=== PATIENT | female | born 1980 | race Caucasian/White ===

== ENCOUNTER → 2016-07-20 | Outpatient (CLI) | payer MEDICARE, OTHER ==
--- NOTE | 2016-07-20 13:06 | XR ---
EXAMINATION TYPE: XR chest 2V DATE OF EXAM: 07/20/2016 1:02 PM COMPARISON: 05/20/2016 INDICATION: Pneumonia TECHNIQUE: Frontal and lateral views of the chest are obtained. FINDINGS: The heart size is normal. The pulmonary vasculature is normal. The lungs are clear. IMPRESSION: 1. No acute pulmonary process.
== END | disposition home or self-care (01) ==
LOC: RADXRMAIN 12:50
PROVIDERS: ATTEND Internal Medicine Sleep Medicine
DX: J18.9 Pneumonia, unspecified organism (principal)
CPT/HCPCS: 71020

== ENCOUNTER 2016-07-22 13:48 | Emergency (ER) | payer MEDICARE, OTHER ==
[2016-07-22 14:16] VITALS: BP 138/89; PULSE 93; RESP 16; TEMP 98.7
[2016-07-22] MEDS ORDERED: ORPHENADRINE 30 MG/ML 2 ML VIAL IM STA (14:44)
[2016-07-22] MEDS ORDERED: KETOROLAC 60 MG/2 ML VIAL IM STA (14:44)
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
--- NOTE | 2016-07-22 15:27 | XR ---
EXAMINATION TYPE: XR chest 2V DATE OF EXAM: 07/22/2016 3:04 PM COMPARISON: NONE INDICATION: Pain TECHNIQUE: Frontal and lateral views of the chest are obtained. FINDINGS: The heart size is normal. The pulmonary vasculature is normal. The lungs are clear. Surgical clips from a thyroidectomy are evident. IMPRESSION: 1. No acute pulmonary process.
--- NOTE | 2016-07-22 15:28 | XR ---
EXAMINATION TYPE: XR thoracic spine 2V DATE OF EXAM: 07/22/2016 3:04 PM COMPARISON: NONE HISTORY: Upper back pain TECHNIQUE: 3 views thoracic spine FINDINGS: Vertebral body heights are preserved. Disc heights are preserved. There are 12 thoracic typ e vertebral bodies. The pedicles are intact. IMPRESSION: Normal thoracic spine
== END 2016-07-22 16:17 | disposition home or self-care (01) ==
LOC: EC 13:48
DX: M54.6 Pain in thoracic spine (principal); R05 Cough; J44.9 Chronic obstructive pulmonary disease, unspecified; E07.9 Disorder of thyroid, unspecified; F17.200 Nicotine dependence, unspecified, uncomplicated; Z87.01 Personal history of pneumonia (recurrent); Z79.899 Other long term (current) drug therapy
CPT/HCPCS: 99283; 96372 ×2; 72070; 71020; J2360; J1885

== ENCOUNTER 2016-10-23 09:18 | Emergency (ER) | payer MEDICARE, OTHER ==
[2016-10-23 09:27] VITALS: BP 140/82; PULSE 109; RESP 20; TEMP 97.6
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
== END 2016-10-23 10:19 | disposition home or self-care (01) ==
LOC: EC 09:18
DX: M77.11 Lateral epicondylitis, right elbow (principal); E07.9 Disorder of thyroid, unspecified; F41.9 Anxiety disorder, unspecified; F17.200 Nicotine dependence, unspecified, uncomplicated; Z79.1 Long term (current) use of non-steroidal anti-inflammatories (NSAID); Z79.899 Other long term (current) drug therapy
CPT/HCPCS: 99283

== ENCOUNTER 2016-12-27 21:23 | Emergency (ER) | payer MEDICARE, OTHER ==
[2016-12-27] MEDS ORDERED: HYDROmorphone 1 MG/ML 1 ML SYRINGE IM STA (22:53)
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
[2016-12-28 00:04] VITALS: BP 138/87; PULSE 104; RESP 16; TEMP 98.3
== END 2016-12-28 00:15 | disposition home or self-care (01) ==
LOC: EC 21:23
DX: M96.830 Postprocedural hemorrhage of a musculoskeletal structure following a musculoskeletal system procedure (principal); E07.9 Disorder of thyroid, unspecified; F17.200 Nicotine dependence, unspecified, uncomplicated; Z79.1 Long term (current) use of non-steroidal anti-inflammatories (NSAID); Z79.899 Other long term (current) drug therapy; Y83.8 Other surgical procedures as the cause of abnormal reaction of the patient, or of later complication, without mention of misadventure at the time of the procedure
CPT/HCPCS: 99283; 96372; J1170

== ENCOUNTER 2017-02-24 11:40 | Emergency (ER) | payer MEDICARE, OTHER ==
[2017-02-24 11:48] VITALS: RESP 20
[2017-02-24] MEDS ORDERED: ALBUTEROL NEBULIZED 2.5 MG/3 ML INHALATION STA (12:03)
[2017-02-24] MEDS ORDERED: IPRATROPIUM-ALBUTEROL 3 ML NEB INHALATION STA (12:03)
[2017-02-24] MEDS ORDERED: DEXAMETHASONE 4 MG TAB PO STA (12:04)
--- NOTE | 2017-02-24 12:17 | XR ---
EXAMINATION TYPE: XR chest 2V DATE OF EXAM: 02/24/2017 COMPARISON: NONE HISTORY: Cough and congestion with history of asthma and COPD TECHNIQUE: Frontal and lateral views of the chest are obtained. FINDINGS: There is no focal air space opacity, pleural effusion, or pneumothorax seen. The cardiac silhouette size is within normal limits. The osseous structures are intact. Surgical clips from nancy or thyroidectomy are noted. Minimal degenerative changes of the thoracic spine are seen. IMPRESSION: No acute cardiopulmonary process.
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
[2017-02-24 13:39] VITALS: BP 143/97; PULSE 100; TEMP 98.2
== END 2017-02-24 13:39 | disposition home or self-care (01) ==
LOC: EC 11:40
DX: J44.1 Chronic obstructive pulmonary disease with (acute) exacerbation (principal); J40 Bronchitis, not specified as acute or chronic; E07.9 Disorder of thyroid, unspecified; F17.200 Nicotine dependence, unspecified, uncomplicated; Z86.73 Personal history of transient ischemic attack (TIA), and cerebral infarction without residual deficits; Z79.890 Hormone replacement therapy; Z79.899 Other long term (current) drug therapy
CPT/HCPCS: 94640; 71020; 99283; J8540

== ENCOUNTER → 2017-02-27 | Outpatient (CLI) | payer MEDICARE, OTHER ==
[2017-02-27 16:38] LABS: CH 34.2; CHCM 35.9; HCT 41.9 % (34.0-46.0); HDW 2.53; HGB 14.7 gm/dL (11.4-16.0); MCH 33.4 pg (25.0-35.0); MCV 95.6 fL (80.0-100.0); Mean Platelet Volume 7.8; RBC 4.39 m/uL (3.80-5.40); RDW 13.7 % (11.5-15.5); WBC 9.8 k/uL (3.8-10.6)
[2017-02-27 17:56] LABS: Erythrocyte Sedimentation Rate 5 mm/hr (0-20)
[2017-02-27 20:23] LABS: RBC, Body Fluid 9900 /uL
== END | disposition home or self-care (01) ==
LOC: LABWHC1 16:08
PROVIDERS: ATTEND Orthopaedic Surgery
DX: M23.631 Other spontaneous disruption of medial collateral ligament of right knee (principal); M23.612 Other spontaneous disruption of anterior cruciate ligament of left knee
CPT/HCPCS: 36415; 83520; 85027; 85652; 86140; 87070; 87075; 87205; 89050

== ENCOUNTER → 2017-03-28 | Outpatient (CLI) | payer MEDICARE, OTHER ==
--- NOTE | 2017-03-31 10:03 | MM ---
Reason for exam: clinical finding. Baseline mammogram. History: Family history of breast cancer in maternal grandmother at age 50. Took hormonal contraceptives for 10 years beginning at age 17. Physical Findings: Nurse did not find any significant physical abnormalities on exam. MG 3D Diag Mammo Wo Cad ASHLEE Bilateral CC and MLO view(s) were taken. XCCL view(s) were taken of the right breast. There are scattered fibroglandular densities. No suspicious abnormality. These results were verbally communicated with the patient and result sheet given to the patient on 03/28/17. ASSESSMENT: Negative, BI-RAD 1 RECOMMENDATION: Routine screening mammogram of both breasts at age 42.
--- NOTE | 2017-03-31 10:05 | USB ---
Reason for exam: clinical finding. History: Family history of breast cancer in maternal grandmother at age 50. Took hormonal contraceptives for 10 years beginning at age 17. US Breast BILAT Right breast ultrasound includes all four quadrants, the retroareolar region and axilla. Finding demonstrates no cystic or solid lesion seen. Left breast ultrasound includes all four quadrants, the retroareolar region and axilla. Finding demonstrates no cystic or solid lesion seen. No suspicious sonographic abnormality. No cystic or solid mass. These results were verbally communicated with the patient and result sheet given to the patient on 03/28/17. ASSESSMENT: Negative, BI-RAD 1 RECOMMENDATION: Routine screening mammogram of both breasts at age 42. (or sooner if clinically indicated) Manage patient on a clinical basis.
== END | disposition home or self-care (01) ==
LOC: RADMAMWWP 14:03
PROVIDERS: ATTEND Internal Medicine
DX: N63 Unspecified lump in breast (principal)
CPT/HCPCS: 76641; G0204; G0279

== ENCOUNTER 2017-06-19 09:26 | Emergency (ER) | payer MEDICARE, OTHER ==
[2017-06-19] MEDS ORDERED: SODIUM CHLORIDE 0.9% 1,000 ML IV STA (09:40)
[2017-06-19] MEDS ORDERED: PANTOPRAZOLE 40 MG/10 ML VIAL IVP STA (09:40)
[2017-06-19] MEDS ORDERED: ONDANSETRON 4 MG/2 ML VIAL IVP STA (09:40)
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
[2017-06-19 10:18] LABS: Basophils % (A) 0 %; CH 33.7; CHCM 35.9; Eosinophils # (A) 0.1 k/uL (0-0.7); Eosinophils % (A) 1 %; HCT 43.1 % (34.0-46.0); HDW 2.54; Luc # (Auto) 0.09; Luc % (Auto) 1; Lymphocytes # (A) 1.9 k/uL (1.0-4.8); Lymphocytes % (A) 22 %; MCH 32.8 pg (25.0-35.0); MCHC 34.8 g/dL (31.0-37.0); MCV 94.4 fL (80.0-100.0); Monocytes # (A) 0.4 k/uL (0-1.0); Monocytes % (A) 5 %; Neutrophils # (A) 5.8 k/uL (1.3-7.7); Neutrophils % (A) 70 %; RBC 4.57 m/uL (3.80-5.40); RDW 12.7 % (11.5-15.5); WBC 8.4 k/uL (3.8-10.6); WBC (Perox) 8.06
[2017-06-19 10:19] LABS: Appearance,Urine Clear (Clear); Bilirubin,Urine Negative (Negative); Glucose,Urine (UA) Negative (Negative); Ketones,Urine Negative (Negative); Leukocyte Esterase,Urine Negative (Negative); Nitrite,Urine Negative (Negative); Protein,Urine Negative (Negative); Specific Gravity,Urine 1.003 (1.001-1.035); UA Billing (MACRO vs. MICRO) CHEM; Urobilinogen,Urine <2.0 mg/dL (<2.0)
[2017-06-19 10:26] LABS: ALT 55 U/L (9-52); AST 34 U/L (14-36); Alkaline Phosphatase 62 U/L (38-126); Amylase 48 U/L (30-110); Anion Gap 9 mmol/L; Blood Urea Nitrogen 13 mg/dL (7-17); Calcium 10.3 mg/dL (8.4-10.2); Carbon Dioxide 29 mmol/L (22-30); Chloride 102 mmol/L (98-107); Glucose 91 mg/dL (74-99); Non-African American GFR(MDRD) >60 (>60 ml/min/1.73 sqM); Potassium 4.3 mmol/L (3.5-5.1); Sodium 140 mmol/L (137-145); Total Bilirubin 0.2 mg/dL (0.2-1.3); Total Protein 7.4 g/dL (6.3-8.2)
--- NOTE | 2017-06-19 10:38 | XR ---
EXAMINATION TYPE: XR chest 2V DATE OF EXAM: 06/19/2017 COMPARISON: 02/24/2017 HISTORY: Chest pain TECHNIQUE: Frontal and lateral views of the chest are obtained. FINDINGS: There is no focal air space opacity. No evidence for pneumothorax. No pleural effusion. The cardiac silhouette size is within normal limits. The osseous structures are grossly intact. IMPRESSION: 1. No acute cardiopulmonary process.
--- NOTE | 2017-06-19 10:39 | XR ---
EXAMINATION TYPE: XR KUB DATE OF EXAM: 06/19/2017 COMPARISON: NONE HISTORY: Pain TECHNIQUE: Single supine KUB image of the abdomen is obtained FINDINGS: Small bowel demonstrates no evidence for dilatation or air fluid levels. Gas and fecal material is seen in non-distended colon. No convincing evidence for pneumoperitoneum. No unusual calcifications. The lung bases are clear. The osseous structures are intact. IMPRESSION: 1. Overall nonobstructive bowel gas pattern.
[2017-06-19 11:09] VITALS: BP 142/81; PULSE 98; RESP 16; TEMP 98
== END 2017-06-19 11:05 | disposition home or self-care (01) ==
LOC: EC 09:26
DX: R11.2 Nausea with vomiting, unspecified (principal); R19.7 Diarrhea, unspecified; R10.9 Unspecified abdominal pain; R11.14 Bilious vomiting; R05 Cough; E07.9 Disorder of thyroid, unspecified; F41.9 Anxiety disorder, unspecified; F17.200 Nicotine dependence, unspecified, uncomplicated; Z79.1 Long term (current) use of non-steroidal anti-inflammatories (NSAID); Z88.5 Allergy status to narcotic agent; Z79.899 Other long term (current) drug therapy; Z90.49 Acquired absence of other specified parts of digestive tract
CPT/HCPCS: 36415; 80053; 82150; 83690; 85025; 81003; 81025; 71020; 74000; 99284; 96374; 96375; 96361; J2405; C9113

== ENCOUNTER → 2017-07-15 | Outpatient (CLI) | payer MEDICARE, OTHER ==
--- NOTE | 2017-07-15 07:43 | US ---
EXAMINATION TYPE: US abdomen complete DATE OF EXAM: 07/15/2017 COMPARISON: CT CLINICAL HISTORY: R10.84 Generalized Abdominal Pain. Pt states generalized ABD pain, GERD, recent alida ght gain EXAM MEASUREMENTS: Liver Length: 13.4 cm CBD: 1.0 cm proximal, 0.6 cm distal Spleen: 9.0 cm Right Kidney: 10.2 x 4.6 x 5.5 cm Left Kidney: 10.1 x 5.5 x 5.0 cm Pancreas: wnl Liver: Heterogeneous Gallbladder: Surgically absent Evidence for sonographic Mesa's sign: No CBD: wnl Spleen: wnl Right Kidney: wnl Left Kidney: wnl, difficult to visualize due to overlying bowel gas Upper IVC: wnl Abd Aorta: wnl No abnormality visualized to account for pt's symptoms The liver is heterogenous. The intrahepatic portion of the IVC and proximal abdominal aorta are withi n normal limits. Common bile duct is unremarkable. The visualized portions of the pancreas are homo genous. The spleen is unremarkable. Kidneys are symmetric and free of hydronephrosis. No renal les ions are seen. IMPRESSION: 1. Fatty liver versus diffuse hepatocellular disease.
== END | disposition home or self-care (01) ==
LOC: RADUSWWP 07:01
PROVIDERS: ATTEND Internal Medicine
DX: R10.84 Generalized abdominal pain (principal); Z88.6 Allergy status to analgesic agent; Z88.5 Allergy status to narcotic agent; Z88.7 Allergy status to serum and vaccine
CPT/HCPCS: 76700

== ENCOUNTER → 2017-12-27 | Outpatient (CLI) | payer MEDICARE, OTHER ==
--- NOTE | 2017-12-27 09:25 | MR ---
EXAMINATION TYPE: MR knee RT wo con DATE OF EXAM: 12/27/2017 COMPARISON: NONE HISTORY: Pain in both knees TECHNIQUE: Multiplanar, multisequence imaging of the right knee is performed without IV contrast. FINDINGS: MEDIAL MENISCUS: Anterior and posterior horns are intact without tear. LATERAL MENISCUS: There may be root tear of the posterior horn of the lateral meniscus CRUCIATE LIGAMENTS: Patient shows anterior cruciate ligament repair change, susceptibility artifact i s present, there is fluid present at the level of the distal metaphysis of the tibia at the site of p atient's operative change superficial to the bone, there is some widening of the channel distally whi ch is indeterminate but could be postoperative COLLATERAL LIGAMENTS: The medial collateral ligament and lateral collateral ligament complex are inta ct and unremarkable. EXTENSOR MECHANISM: Visualized quadriceps and patellar tendons are intact. EFFUSION: Suprapatellar joint effusion. POPLITEAL CYST: No popliteal/diaz cyst. TRICOMPARTMENT SPACES: Joint space loss is present in the lateral compartment. CARTILAGE: There is grade IV chondromalacia in the lateral compartment, grade 3 to grade IV chondroma lacia suspected at the posterior patella BONE MARROW SIGNAL: Subchondral geode formation present in the lateral femoral condyle, posterior pat lana OTHER: Marginal spurring is present medial lateral compartments, there is some subcutaneous edema ch gris present along the proximal tibia near the operative change at the metaphysis medially, anchor fo r the anterior cruciate ligament repair which may be postoperative IMPRESSION: Difficult to exclude meniscal root tear posterior horn lateral meniscus. Postop changes. Secondary os teoarthritis suspected. Small joint effusion. Soft tissue fluid, edema as described, additional findi ngs regarding the anterior cruciate ligament repair.
--- NOTE | 2017-12-27 09:34 | MR ---
EXAMINATION TYPE: MR knee LT wo con DATE OF EXAM: 12/27/2017 COMPARISON: NONE HISTORY: Pain in bilateral knees TECHNIQUE: Multiplanar, multisequence imaging of the left knee is performed without IV contrast. FINDINGS: MEDIAL MENISCUS: Posterior horn of the medial meniscus shows some linear increased signal which could possibly extend to the articular surface, difficult to exclude tear LATERAL MENISCUS: Anterior and posterior horns are intact without tear. CRUCIATE LIGAMENTS: Postop change noted to the anterior cruciate ligament, posterior cruciate ligamen t unremarkable. Susceptibility artifact is present due to patient's postop change. COLLATERAL LIGAMENTS: The medial collateral ligament and lateral collateral ligament complex are inta ct and unremarkable. EXTENSOR MECHANISM: Visualized quadriceps and patellar tendons are intact. EFFUSION: Small suprapatellar joint effusion is present. POPLITEAL CYST: No popliteal/diaz cyst. TRICOMPARTMENT SPACES: There is joint space loss especially in the lateral compartment. CARTILAGE: Grade IV chondromalacia change suspected at the posterior patella inferiorly, grade 2 to g rade III chondromalacia in the medial lateral compartments. BONE MARROW SIGNAL: Subchondral marrow signal change suspected along the lateral aspect of the inferi or posterior patella OTHER: Patient is status post anterior cruciate ligament repair, marginal spurring is present in the medial lateral compartments IMPRESSION: Postop changes, osteoarthritis. Difficult to exclude tear of the posterior horn the medial meniscus.
== END | disposition home or self-care (01) ==
LOC: RADMRIMAIN 07:48
PROVIDERS: ATTEND Internal Medicine
DX: M17.5 Other unilateral secondary osteoarthritis of knee (principal); M17.12 Unilateral primary osteoarthritis, left knee; Z98.890 Other specified postprocedural states

== ENCOUNTER → 2018-01-14 | Outpatient (CLI) | payer MEDICARE, OTHER ==
--- NOTE | 2018-01-14 09:32 | MR ---
EXAMINATION TYPE: MR lumbar spine wo con DATE OF EXAM: 01/14/2018 COMPARISON: CT abdomen pelvis dated 01/20/2016 HISTORY: Low back pain TECHNIQUE: Multiplanar, multisequence images of the lumbar spine were acquired. FINDINGS: The lumbar spine vertebral bodies maintain normal vertebral body height and alignment. Mult ilevel disc desiccation is seen. T2/T1 hyperintense vertebral body hemangiomas are seen of T12 and L1 . Conus medullaris is unremarkable terminating at L1-L2. Bone marrow signal is within normal limits. L1-L2: There is a very small broad-based disc bulge with slight flattening of the usual disc concavit y posteriorly. No spinal canal stenosis or neural foraminal narrowing. L2-L3: There is a very small broad-based disc bulge without spinal canal stenosis or neural foraminal narrowing. L3-L4: There is disc desiccation and a broad-based disc bulge with minimal bilateral neural foraminal narrowing and no spinal canal stenosis. L4-L5: There is a small left paracentral disc protrusion/herniation and annular tear superimposed upo n a broad-based disc bulge impressing on the ventral thecal sac without significant spinal canal sten osis. The broad-based disc bulge and facet arthropathy results in minimal bilateral neural foraminal narrowing. L5-S1: There is a small broad-based disc bulge without spinal canal stenosis or neural foraminal narr owing. Lumbar segments are intact. No paraspinal masses are identified. Conus medullaris has a normal appe arance. IMPRESSION: 1. Small left paracentral disc herniation with annular tear at L4-L5 without spinal canal stenosis. F acet arthropathy and a broad-based disc bulge at this level creating minimal neural foraminal narrowi ng bilaterally. 2. Mild degenerative disc disease without spinal canal stenosis.
--- NOTE | 2018-01-14 09:48 | MR ---
EXAMINATION TYPE: MR brain wo/w con DATE OF EXAM: 01/14/2018 COMPARISON: NONE HISTORY: Headache TECHNIQUE: Multiplanar, multisequence images of the brain and brainstem is performed without and with IV contras t, utilizing 7 mL intravenous Gadavist . FINDINGS: Diffusion weighted images demonstrate no evidence of a recent infarct or other diffusion ab normality. There is no extra-axial fluid collection or significant white matter signal abnormality. The ventricular system and cisternal spaces are normal in size and appearance. The brain volume is age appropriate. Midline structures demonstrate normal morphology. The craniocervical junction appears within normal limits. Post contrast images demonstrate no abnormal enhancement. The dural venous sinuses appear pa tent with a prominent arachnoid location in the left transverse sinus. The visualized sinuses demonst rate a small 8 mm mucosal retention cyst versus less likely polyp in the inferior right maxillary sin us and mild bilateral mucosal thickening of the maxillary sinuses and ethmoid sinuses. Scant mucosal thickening is seen within the inferior sphenoid sinuses dependently. Frontal sinuses remain well aera josefina as do the mastoid air cells. Some secretions are noted within the posterior nasopharynx. The glob es are intact. Major intracranial flow voids are intact and enhancement is seen throughout the major intracranial st ructures, however there is a 2 mm possible saccular aneurysm at the proximal M1 segment on postcontra st T1 axial series 602 image 12. Confirmation with MRA brain could be performed. Overall the [place] o f [place] appears intact. IMPRESSION: 1. 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 Confirmation/exclusion with MRA b rain could be performed. 2. Mild paranasal sinus disease within the maxillary, ethmoid, and to a lesser degree within the sphe noid sinuses with right maxillary 8 mm mucosal retention cyst.
== END | disposition home or self-care (01) ==
LOC: RADMRIMAIN 06:08
PROVIDERS: ATTEND Psychiatry & Neurology Neurology
DX: M51.26 Other intervertebral disc displacement, lumbar region (principal); M51.36 Other intervertebral disc degeneration, lumbar region; M46.96 Unspecified inflammatory spondylopathy, lumbar region; R51 Headache
CPT/HCPCS: 70553; 72148; A9581

== ENCOUNTER → 2018-03-20 | Outpatient (CLI) | payer MEDICARE, BC ==
--- NOTE | 2018-03-22 09:07 | MR ---
EXAMINATION TYPE: MR angio head wo con DATE OF EXAM: 03/20/2018 COMPARISON: NONE HISTORY: Syncope TECHNIQUE: Utilizing 3-D [id number] intracranial MRA of the native of [place] was performed. FINDINGS: The vertebrobasilar and carotid systems are patent. There is no sizable vascular malformation. Right vertebral artery is dominant. There is a 2 mm nodular prominence of the anterior communicating artery. IMPRESSION: 1. 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
== END | disposition home or self-care (01) ==
LOC: RADMRIMAIN 18:33
PROVIDERS: ATTEND Psychiatry & Neurology Pain Medicine
DX: R55 Syncope and collapse (principal); Z88.5 Allergy status to narcotic agent
CPT/HCPCS: 70544

== ENCOUNTER 2018-03-21 19:22 | Emergency (ER) | payer MEDICARE, BC ==
[2018-03-21 19:30] VITALS: BP 135/88; PULSE 105; RESP 18; TEMP 98.3
--- NOTE | 2018-03-21 19:54 | XR ---
EXAMINATION TYPE: XR knee complete LT DATE OF EXAM: 03/21/2018 CLINICAL HISTORY: Knee pain TECHNIQUE: Three views of the left knee are obtained. COMPARISON: None. FINDINGS: There is no acute fracture/dislocation evident in left knee. The tri-compartment joint sp aces appear within normal limits. The overlying soft tissue appears unremarkable. Evidence of prior cruciate ligament repair. IMPRESSION: There is no acute fracture or dislocation.
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
== END 2018-03-21 20:11 | disposition home or self-care (01) ==
LOC: EC 19:22
DX: S83.512A Sprain of anterior cruciate ligament of left knee, initial encounter (principal); J44.9 Chronic obstructive pulmonary disease, unspecified; I10 Essential (primary) hypertension; E07.9 Disorder of thyroid, unspecified; F41.9 Anxiety disorder, unspecified; F32.9 Major depressive disorder, single episode, unspecified; F17.200 Nicotine dependence, unspecified, uncomplicated; Z86.73 Personal history of transient ischemic attack (TIA), and cerebral infarction without residual deficits; Z86.14 Personal history of Methicillin resistant Staphylococcus aureus infection; Z98.890 Other specified postprocedural states; Z79.1 Long term (current) use of non-steroidal anti-inflammatories (NSAID); Z79.899 Other long term (current) drug therapy; Z88.5 Allergy status to narcotic agent; X58.XXXA Exposure to other specified factors, initial encounter; Y93.01 Activity, walking, marching and hiking; Y92.002 Bathroom of unspecified non-institutional (private) residence as the place of occurrence of the external cause
CPT/HCPCS: 99283

== ENCOUNTER → 2018-04-28 | Outpatient (CLI) | payer MEDICARE, BC ==
--- NOTE | 2018-04-28 17:27 | ECHOF ---
Referral Reason:R55 Syncope, I74.4 Abdominal aortic aneurysm MEASUREMENTS -------- HEIGHT: 152.4 cm WEIGHT: 70.3 kg BP: IVSd: 0.9 cm (0.6 - 1.1) LVIDd: 3.8 cm (3.9 - 5.3) LVPWd: 1.0 cm (0.6 - 1.1) IVSs: 1.1 cm LVIDs: 2.5 cm LVPWs: 1.2 cm LAESV Index (A-L): 20.09 ml/m Ao Diam: 3.1 cm (2.0 - 3.7) AV Cusp: 1.6 cm (1.5 - 2.6) LA Diam: 2.7 cm (2.7 - 3.8) MV E Bandar: 0.75 m/s MV DecT: 253 ms MV A Bandar: 0.77 m/s MV E/A Ratio: 0.97 RAP: 5.00 mmHg RVSP: 19.38 mmHg FINDINGS -------- Resting tachycardia (HR>100bpm). This was a technically good study. The left ventricular size is normal. Left ventricular wall thickness is normal. Overall left vent ricular systolic function is normal with, an EF between 55 - 60 %. The right ventricle is normal in size and function. Normal LA size by volume 22+/-6 ml/m2. The right atrium is normal in size. The aortic valve is trileaflet, and appears structurally normal. No aortic stenosis or regurgitation. The mitral valve leaflets are mildly thickened. There is trace to mild mitral regurgitation. Trace tricuspid regurgitation present. Right ventricular systolic pressure is normal at < 35 mmHg. There is no evidence of pulmonary hypertension. Trace/mild (physiologic) pulmonic regurgitation. The aortic root size is normal. Normal inferior vena cava with normal inspiratory collapse consistent with estimated right atrial pre ssure of 5 mmHg. There is no pericardial effusion. CONCLUSIONS -------- 1. Resting tachycardia (HR>100bpm). 2. This was a technically good study. 3. The left ventricular size is normal. 4. Left ventricular wall thickness is normal. 5. Overall left ventricular systolic function is normal with, an EF between 55 - 60 %. 6. Normal LA size by volume 22+/-6 ml/m2. 7. The aortic valve is trileaflet, and appears structurally normal. No aortic stenosis or regurgitati on. 8. The mitral valve leaflets are mildly thickened. 9. There is trace to mild mitral regurgitation. 10. Trace tricuspid regurgitation present. 11. Right ventricular systolic pressure is normal at < 35 mmHg. 12. There is no evidence of pulmonary hypertension. 13. Trace/mild (physiologic) pulmonic regurgitation. 14. The aortic root size is normal. 15. There is no pericardial effusion. ASSOCIATE BROKER: Lowell Gutierrez RDCS
== END | disposition home or self-care (01) ==
LOC: RADECHMAIN 14:56
PROVIDERS: ATTEND Internal Medicine
DX: I37.1 Nonrheumatic pulmonary valve insufficiency (principal); I34.0 Nonrheumatic mitral (valve) insufficiency
CPT/HCPCS: 93306

== ENCOUNTER → 2018-06-03 | Outpatient (CLI) | payer MEDICARE, BC ==
--- NOTE | 2018-06-03 12:53 | CT ---
EXAMINATION TYPE: CT pelvis w con DATE OF EXAM: 06/03/2018 COMPARISON: CT abdomen pelvis 01/20/2016 HISTORY: 37-year-old Female pelvic pain. Sling and hysterectomy in 2016. TECHNIQUE: Contiguous axial scanning of the pelvis following administration of 100 ml Isovue 300 IV c ontrast. Delayed images through the bladder and coronal/sagittal reconstructions performed. CT DLP: 632 mGycm Automated exposure control for dose reduction was used. FINDINGS: Bladder is urine distended. Both ovaries are visualized. Follicular change on the right. Delayed imag es show contrast filling the bladder with both ureteral jets seen. Cholecystectomy clips. Visualized mid and lower kidneys show no gross abnormality. No dilated small bowel, free fluid, or free air. No mesenteric or retroperitoneal lymphadenopathy. Oral contrast progressed to the rectum. No pericolonic inflammatory change. Uterus surgically absent. Pelvic phleboliths. No abnormal fluid collection the pelvis or pelvic lymph adenopathy seen. IMPRESSION: STATUS POST HYSTERECTOMY. FOLLICULAR CHANGE IN THE RIGHT OVARY. NO PELVIC FREE FLUID OR ADNEXAL ABNOR MALITY SEEN.
== END | disposition home or self-care (01) ==
LOC: RADCTMAIN 09:16
PROVIDERS: ATTEND Internal Medicine
DX: R10.2 Pelvic and perineal pain (principal); Z90.710 Acquired absence of both cervix and uterus; Z88.5 Allergy status to narcotic agent; Z88.7 Allergy status to serum and vaccine; Z88.8 Allergy status to other drugs, medicaments and biological substances
CPT/HCPCS: 72193; Q9967

== ENCOUNTER → 2018-07-07 | Outpatient (CLI) | payer MEDICARE, BC ==
[2018-07-07 10:22] LABS: Basophils % (A) 0 %; Eosinophils # (A) 0.1 k/uL (0-0.7); Eosinophils % (A) 1 %; HCT 42.9 % (34.0-46.0); HGB 14.5 gm/dL (11.4-16.0); Lymphocytes # (A) 1.9 k/uL (1.0-4.8); Lymphocytes % (A) 28 %; MCH 32.5 pg (25.0-35.0); MCHC 33.7 g/dL (31.0-37.0); MCV 96.5 fL (80.0-100.0); Mean Platelet Volume 7.2; Monocytes # (A) 0.3 k/uL (0-1.0); Monocytes % (A) 4 %; Neutrophils # (A) 4.4 k/uL (1.3-7.7); Neutrophils % (A) 65 %; Platelet Count 305 k/uL (150-450); RBC 4.45 m/uL (3.80-5.40); RDW 12.7 % (11.5-15.5); WBC 6.7 k/uL (3.8-10.6)
[2018-07-07 10:31] LABS: Potassium 4.7 mmol/L (3.5-5.1)
== END | disposition home or self-care (01) ==
LOC: LABPAT 09:23
PROVIDERS: ATTEND Orthopaedic Surgery
DX: Z01.812 Encounter for preprocedural laboratory examination (principal); M23.91 Unspecified internal derangement of right knee
CPT/HCPCS: 36415; 80051; 85025

== ENCOUNTER 2018-07-30 06:14 | Day surgery (SDC) | payer MEDICARE, BC ==
[2018-07-28 15:01] VITALS: BMI 30.2
--- NOTE | 2018-07-29 14:04 | HP ---
HISTORY AND PHYSICAL DATE OF SURGERY: 07/30/2018 Breana Laughlin is a 38-year-old patient seen with progressive right knee pain. We discussed options for treatment. She elected to proceed with arthroscopy. Consent was obtained. PAST MEDICAL HISTORY: Asthma, hypothyroidism, hypertension, depression. PAST SURGICAL HISTORY: Bilateral knee arthroscopy with ACL reconstruction. MEDICATIONS: 1. Percocet. 2. Gabapentin. 3. Celebrex. 4. Prilosec. 5. Synthroid. ALLERGIES: CODEINE. SOCIAL HISTORY: Smokes 1 pack of cigarettes daily. PHYSICAL EVALUATION OF THE RIGHT KNEE: Her range of motion is 0 to 130 degrees. Mild effusion. Tenderness along the lateral joint line, positive lateral Starr's. Collateral ligaments are stable. Negative Patricia' drawer. Hip rotation without pain. Distal neurovascular exam intact. RADIOGRAPHS OF THE RIGHT KNEE: Revealed evidence for previous anterior cruciate ligament reconstruction endo buttons. An MRI of the right knee revealed a lateral meniscal tear and osteoarthritic changes. IMPRESSION: Internal derangement, right knee with lateral meniscal tear. PLAN: Right knee arthroscopy with partial meniscectomy and debridement. MMODL / IJN: [id number] /
[~2018-07-30 06:14] MED LIST: ceFAZolin 1,000 MG in DEXTROSE/WATER 1 50ML.BAG IVPB ONE
[2018-07-30] MEDS ORDERED: ONDANSETRON 4 MG/2 ML VIAL IVP ONE (06:35)
[2018-07-30] MEDS ORDERED: MIDAZOLAM (PF) 2 MG/2 ML VIAL IV PRN (06:35)
[2018-07-30] MEDS ORDERED: DEXAMETHASONE SOD PHOSPHATE 10 MG/ML 1 ML VIAL IV ONE (06:35)
[2018-07-30] MEDS ORDERED: LIDOCAINE 1% 20 ML VIAL (10MG/ML) FOR IV START INTRADERMA PRN (06:35)
[2018-07-30] MEDS ORDERED: LACTATED RINGERS 1,000 ML IV SCH (06:45)
[2018-07-30] MEDS ORDERED: SUCCINYLCHOLINE CHLORIDE 100 MG/5 ML SYR IV ONE (07:18)
[2018-07-30] MEDS ORDERED: fentaNYL (PF) 50 MCG/ML 2 ML AMP ONE (07:18)
[2018-07-30] MEDS ORDERED: PROPOFOL 10 MG/ML 20 ML VIAL IV ONE (07:18)
[2018-07-30] MEDS ORDERED: LIDOCAINE 1% INJ 10MG/ML (20 ML MDV) ONE (07:18)
[2018-07-30] MEDS ORDERED: MIDAZOLAM 2 MG/2 ML VIAL ONE (07:18)
[2018-07-30] MEDS ORDERED: HYDROmorphone (PF) 1 MG/ML ONE (07:18)
[2018-07-30] MEDS ORDERED: BUPIVACAIN-EPI 0.25%-1:200,000 30 ML VIAL INTRAARTIC ONE (07:36)
[2018-07-30] MEDS ORDERED: BUPIVACAINE (PF) 0.25% 30 ML VIAL INTRAARTIC ONE (07:49)
[2018-07-30] MEDS: fentaNYL (PF) 50 MCG/ML 2 ML AMP IV PRN ×2 (08:03→08:10)
--- NOTE | 2018-07-30 08:06 | P.OP ---
Date of Procedure: 07/30/18 Preoperative Diagnosis: Internal derangement right knee Postoperative Diagnosis: 1. Tear medial meniscus right knee 2. 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 Reactive synovitis medial, lateral and suprapatellar compartments right knee Procedure(s) Performed: 1. Arthroscopic partial medial meniscectomy right knee 2. Arthroscopic chondroplasty lateral femoral condyle right knee 3. Arthroscopic partial synovectomy medial, lateral and suprapatellar compartments right knee Anesthesia: FLIPA, local Surgeon: Pranay Hurtado Estimated Blood Loss (ml): 6 Pathology: none sent Condition: stable Disposition: PACU Indications for Procedure: 38-year-old patient seen with progressive right knee pain. After having treatment options discussed, she elected to proceed with arthroscopy. Operative Findings: See description of procedure Description of Procedure: Patient was taken to the operative suite. Patient underwent a general anesthetic by the department of anesthesia. Patient was given preoperative antibiotics. The right lower extremity was placed in a well-padded arthroscopic leg woods. The right leg was prepped and draped in the normal sterile orthopedic fashion. A lateral parapatellar and suprapatellar incision was made. Trochars were inserted. Arthroscopy was initiated. Suprapatellar pouch revealed diffuse thick reactive synovitis. The patellofemoral joint appeared to articulate congruently. There was no significant chondromalacia noted. The scope was guided into the medial gutter. No loose bodies or plica were identified. The scope was then guided into the medial compartment. A medial parapatellar incision was made. Trocar inserted followed by probe. There was a radial tear anterior horn medial meniscus. There were grade 1 chondromalacia changes of medial tibial plateau. There was thick reactive synovitis anteriorly. I performed a partial medial meniscectomy down to stable tissue. I performed a partial synovectomy decompressing the reactive synovitis. The residual meniscus was stable. There was good decompression synovitis. Scope and probe were then guided into the intercondylar notch. Cruciates were identified, probed and found to be stable. The scope and probe were then guided into lateral compartment. There was some mild fraying of the midbody lateral meniscus. There was an area of grade 1/2 chondromalacia lateral femoral condyle with osteochondral tear present. There was reactive synovitis anteriorly. I performed a chondroplasty lateral femoral condyle. I debrided that small area of superficial fraying lateral meniscus. I performed a partial synovectomy decompressing the reactive synovitis lateral compartment. The scope was in guided back into the suprapatellar compartment. I used a motorized shaver into the compartment. I performed a partial synovectomy decompressing reactive synovitis. Shaver was removed. I took one more look on the entire knee, no residual debris. Instruments were now removed from the joint. The joint was infiltrated with .25% Marcaine. Steri-Strips were applied to the portal sites. Sterile dressings were applied. The patient was placed into a PALMER hose. No tourniquet was utilized. The patient was awakened, transferred to a bed and taken to recovery stable satisfactory condition.
[2018-07-30 08:11] VITALS: TEMP 97.9
[2018-07-30] MEDS ORDERED: KETOROLAC 30 MG/ML 1 ML VIAL IVP ONE (08:15)
[2018-07-30] MEDS: HYDROmorphone 1 MG/ML 1 ML SYRINGE IVP ONE ×4 (08:16→08:26)
[2018-07-30 08:17] VITALS: RESP 16
[2018-07-30] MEDS: MEPERIDINE 50 MG/ML SYRINGE IVP ONE ×2 (08:31→08:37)
[2018-07-30] MEDS ORDERED: FAMOTIDINE 20 MG/2 ML VIAL IVP ONE (08:41)
[2018-07-30 09:12] VITALS: BP 122/87; PULSE 88
== END 2018-07-30 09:39 | disposition home or self-care (01) ==
LOC: OR 06:14
PROVIDERS: ATTEND Orthopaedic Surgery
DX: M23.311 Other meniscus derangements, anterior horn of medial meniscus, right knee (principal); E03.9 Hypothyroidism, unspecified; F17.210 Nicotine dependence, cigarettes, uncomplicated; M17.11 Unilateral primary osteoarthritis, right knee; F32.9 Major depressive disorder, single episode, unspecified; I10 Essential (primary) hypertension; M79.7 Fibromyalgia; K21.9 Gastro-esophageal reflux disease without esophagitis; J45.909 Unspecified asthma, uncomplicated; M65.861 Other synovitis and tenosynovitis, right lower leg; M94.261 Chondromalacia, right knee; Z88.5 Allergy status to narcotic agent; Z79.899 Other long term (current) drug therapy; Z79.1 Long term (current) use of non-steroidal anti-inflammatories (NSAID); Z79.890 Hormone replacement therapy; Z86.73 Personal history of transient ischemic attack (TIA), and cerebral infarction without residual deficits; Z88.1 Allergy status to other antibiotic agents
CPT/HCPCS: 29881; J2250; J1100; J2175; J2405; J2001; J3010; J1885; J1170; J0690; J0330; J2704

== ENCOUNTER → 2018-09-04 | Outpatient (CLI) | payer MEDICARE, BC ==
--- NOTE | 2018-09-07 08:19 | MM ---
Reason for exam: clinical finding. Last mammogram was performed 1 year and 5 months ago. History: Family history of breast cancer in maternal grandmother at age 50. Took hormonal contraceptives for 10 years beginning at age 17. Indicated problem(s): pain in the right breast. Physical Findings: Nurse did not find any significant physical abnormalities on exam. MG 3D Diag Mammo W/Cad ASHLEE Bilateral CC and MLO view(s) were taken. Prior study comparison: March 28, 2017, bilateral MG 3d diag mammo wo cad ASHLEE. The breast tissue is heterogeneously dense. This may lower the sensitivity of mammography. Benign appearing bilateral calcifications. These results were verbally communicated with the patient and result sheet given to the patient on 09/04/18. ASSESSMENT: Incomplete: need additional imaging evaluation, BI-RAD 0 RECOMMENDATION: Ultrasound of the right breast.
--- NOTE | 2018-09-07 08:20 | USB ---
Reason for exam: additional evaluation requested from abnormal screening. History: Family history of breast cancer in maternal grandmother at age 50. Took hormonal contraceptives for 10 years beginning at age 17. US Breast Limited RT Right limited breast ultrasound including focal area of concern, retroareolar and axilla demonstrates no cystic or solid lesion seen. These results were verbally communicated with the patient and result sheet given to the patient on 09/04/18. ASSESSMENT: Benign, BI-RAD 2 RECOMMENDATION: Routine screening mammogram of both breasts in 1 year. Manage patient on a clinical basis.
== END | disposition home or self-care (01) ==
LOC: RADMAMWWP 14:13
PROVIDERS: ATTEND Internal Medicine
DX: R92.8 Other abnormal and inconclusive findings on diagnostic imaging of breast (principal); N64.4 Mastodynia
CPT/HCPCS: 77066; 76642; G0279; 77062

== ENCOUNTER → 2018-10-09 | Outpatient (CLI) | payer MEDICARE, BC ==
--- NOTE | 2018-10-09 08:19 | CT ---
EXAMINATION TYPE: CT sinus wo con DATE OF EXAM: 10/09/2018 COMPARISON: 01/14/2018 HISTORY: sinusitis CT DLP: 648 mGycm. Automated Exposure Control for Dose Reduction was Utilized. TECHNIQUE: CT scan of the sinuses is performed without contrast, axial images are obtained, coronal r eformatted images are also reviewed. FINDINGS: There is severe mucosal thickening with air-fluid level seen in the left maxillary sinus and minimal mucoperiosteal thickening seen on the left with more severe mucoperiosteal thickening of the right ma xillary sinus. Moderate right maxillary sinus mucosal thickening is most pronounced at nondependently . Circumferential mucosal thickening is also present within the sphenoid sinus with only mild mucosal thickening in the posterior ethmoid sinuses. The frontal sinuses are well aerated. Mastoid air cells are also well aerated. There is tonsillar hypertrophy and small left-sided tonsillolith. Retained secretions are seen within the posterior nasopharynx. Orbits appear symmetric. Evaluation of the brain is suboptimal on this ex amination given technique. There is occlusion of the left-sided ostiomeatal complex and narrowing of the right ostiomeatal compl ex. There is very minimal leftward nasal septal deviation and a 3 mm leftward nasal spur. A solitary nonocclusive left subcentimeter Jefe cell is present. No contra bullosa. Osseous structures are mariposa ssly intact. IMPRESSION: 1. Appearance of acute on chronic sinusitis severe in the left maxillary sinus and sphenoid sinus, mo derate within the right maxillary sinus and mild and ethmoid sinuses. Findings have worsened from the prior MRI. 2. Occlusion of the left ostiomeatal complex and narrowing of the right ostium renal complex by mucos al thickening. 3. Very mild leftward nasal septal deviation and a small leftward nasal septal spur.
== END | disposition home or self-care (01) ==
LOC: RADCTMAIN 07:26
PROVIDERS: ATTEND Otolaryngology
DX: J32.0 Chronic maxillary sinusitis (principal); J32.3 Chronic sphenoidal sinusitis; J32.2 Chronic ethmoidal sinusitis; J34.2 Deviated nasal septum; J34.89 Other specified disorders of nose and nasal sinuses
CPT/HCPCS: 70486

== ENCOUNTER 2018-11-12 07:12 | Day surgery (SDC) | payer MEDICARE, BC ==
[2018-11-09 11:16] VITALS: BMI 31.2
[~2018-11-12 07:12] MED LIST changes: +DEXAMETHASONE SOD PHOSPHATE 4 MG/ML 1 ML VIAL IV ONE; +FAMOTIDINE 20 MG/2 ML VIAL IV ONE; +LACTATED RINGERS 1,000 ML IV SCH; +LIDOCAINE 1% 20 ML VIAL (10MG/ML) FOR IV START INTRADERMA PRN; +ONDANSETRON 4 MG/2 ML VIAL IVP ONE; -ceFAZolin 1,000 MG in DEXTROSE/WATER 1 50ML.BAG IVPB ONE; +fentaNYL (PF) 50 MCG/ML 2 ML AMP IV PRN
[2018-11-12] MEDS: OXYMETAZOLINE 0.05% NASL SPRAY 1 SPRAY BOTTLE NASAL ONE ×5 (07:50→08:15)
[2018-11-12] MEDS ORDERED: MIDAZOLAM (PF) 2 MG/2 ML VIAL IVP ONE ×2 (08:41→09:52)
[2018-11-12] MEDS ORDERED: SUCCINYLCHOLINE CHLORIDE 100 MG/5 ML SYR IV ONE (09:55)
[2018-11-12] MEDS ORDERED: MIDAZOLAM 2 MG/2 ML VIAL ONE (09:55)
[2018-11-12] MEDS ORDERED: PROPOFOL 10 MG/ML 20 ML VIAL IV ONE (09:55)
[2018-11-12] MEDS ORDERED: fentaNYL (PF) 50 MCG/ML 2 ML AMP ONE (09:55)
[2018-11-12] MEDS ORDERED: FLUORESCEIN STRIPS 1 MG STRIP MISCELLANE ONE (10:23)
[2018-11-12] MEDS ORDERED: BUPIVACAIN-EPI 0.5%-1:200,000 30 ML VIAL SQ ONE ×2 (10:23)
[2018-11-12] MEDS ORDERED: EPINEPHrine 1 MG/ML (MDV) 30 ML VIAL TOPICAL ONE (10:23)
[2018-11-12] MEDS ORDERED: LIDOCAINE 1%-EPI 1:100,000 20 ML VIAL SQ ONE ×2 (10:23)
[2018-11-12] MEDS ORDERED: LACTATED RINGERS 1,000 ML IV ONE (11:11)
[2018-11-12 11:28] VITALS: TEMP 96.8
--- NOTE | 2018-11-12 11:42 | P.OP ---
Date of Procedure: 11/12/18 Preoperative Diagnosis: Chronic pansinusitis Deviated nasal septum Hypertrophy of inferior nasal turbinates Postoperative Diagnosis: same Procedure(s) Performed: Bilateral functional endoscopic sinus surgery Septoplasty Bilateral submucosal resection of the inferior turbinates with outfracture and compression Anesthesia: TAYO Surgeon: Prince Kelly Estimated Blood Loss (ml): 5 Pathology: other (Sinonasal) Condition: stable Disposition: PACU Indications for Procedure: Problems with chronic sinusitis for very long period of time. Please failed medical therapy and has complaints of nasal obstruction anosmia and constant discolored drainage etc. Patient would like to proceed forward with functional endoscopic sinus surgery, septoplasty, turbinate surgery. All risks, benefits, and alternative therapies were discussed. Consent was obtained and all questions were answered. Operative Findings: Patient had widespread sinonasal disease with a deviated septum causing obstruction large obstructive inferior turbinates and the patient was found to have chronic pansinusitis with infection and all sinuses including ethmoids maxillaries frontal and sphenoid sinuses. Description of Procedure: This patient was taken to the operative room and placed in the supine position. A general inhalation anesthetic was administered to the patient by the department of anesthesia with a functioning IV line in place. The patient was monitored throughout the entire case by the department of anesthesia. The eyes were taped shut for protection. The patient was placed in a slight reverse Trendelenburg position. The patient had previously utilize Afrin nasal spray preoperatively. The nose was evaluated and the septum lateral nasal wall and inferior turbinates were injected with lidocaine 1% with epinephrine 1 100,000 bilaterally. Approximately 10 minutes were allowed wait for full vasoconstrictive effects to take place. At this point a caudal incision was made over the caudal portion of the left septum down to the mucoperichondrium. A mucoperichondrial flap was elevated on the left side and dissection was carried with use of tunnels posteriorly. We then made a crossover incision through the cartilage to the contralateral side and for the mucoperichondrial flap development was performed to the extent of visualization on the contralateral side. After the cartilage was freed with use of several crosshatching incisions and removal of some redundant strips of septal cartilage, the septum was straightened and placed back in the midline. The septum was sutured fixated to the ovarian groove. Excellent straightening occurred and the septum was visibly straight. Incision was closed with a 40 rapid Vicryl. We utilized a running nonlocking fashion for closure of the incision. A quilting stitch was used to reapproximate the septal flaps with use of a 40 rapid Vicryl. We then entered the nose with a 0 and 30 [place] omar endoscope. Previous to this we did inject the lateral nasal wall and middle turbinate and uncinate process with lidocaine 1% with epinephrine 1 100,000. Approximately 10 minutes were allowed wait for full vasoconstrictive effects to take place. With use of a microdebrider and a pediatric backbiter, we took down the uncinate process bilaterally. We then opened the maxillary sinuses bilaterally. We utilized a microdebrider for this and entered the maxillary sinuses and removed diseased tissue. This was done bilaterally. After the maxillary sinuses were opened and the diseased tissue was removed we entered the ethmoid bulla and with use of a microdebrider and up-biting boss and Tomy, we followed the fovea frontalis through the basal lamella and into the posterior ethmoid air cells and did a total ethmoidectomy. We removed the anterior ethmoid air cells with use of a microdebrider and up-biting boss. After all the anterior ethmoid air cells were removed we did the same in the posterior ethmoid. A total ethmoidectomy was completed in that fashion with removal of all the anterior and posterior ethmoid air cells and diseased tissue. Once the ethmoids cells were all taken down we then entered the sphenoid sinus medially and inferiorly underneath the inferior attachment of the superior turbinate. The sphenoid sinus was opened entered and diseased tissue was removed bilaterally. This was done with a microdebrider and Blakesley. We then entered the frontal sinuses with a giraffe and up-biting Blakesley entered on the agar nasi cells. We open the frontal sinuses and removed sinus tissue that was diseased. We explored the frontal sinuses bilaterally. To summarize all sinuses were open all sinuses were explored and we remove diseased tissue from the sphenoid maxillary and frontal sinuses. Ethmoid sinuses were opened totally. Xerogel was inserted and minimal bleeding was encountered. We reinspected the skull base there is no signs of any orbital penetration or signs of any intracranial penetration. The sugical site was reinspected after the xerogel was placed and no bleeding was seen. Intranasal splints were inserted and fixated at the end of the case. We utilized Young nasal splints. There will be removed and the patient returns to the office. Attention was then paid to the inferior turbinates. The bilateral inferior turbinates were hypertrophic and obstructive. We entered the anterior portion of the inferior turbinates with use of a microdebrider. We remove bone and submucosal elements with use of a microdebrider bilaterally. The inferior turbinates underwent a submucosal resection with removal of submucosal tissue and bone. We obtained a much better and normal in size for breathing. The inferior turbinates were then outfractured and compressed with a [employer] nasal elevator. Excellent airway was obtained and was symmetric bilaterally. No bleeding was encountered.
[2018-11-12] MEDS ORDERED: oxyCODONE-APAP 7.5-325MG 1 EACH TAB PO ONE (12:13)
[2018-11-12 12:14] VITALS: RESP 16
[2018-11-12 12:42] VITALS: BP 139/96; PULSE 70
== END 2018-11-12 13:07 | disposition home or self-care (01) ==
LOC: OR 07:12
PROVIDERS: ATTEND Otolaryngology
DX: J32.4 Chronic pansinusitis (principal); J34.2 Deviated nasal septum; J34.3 Hypertrophy of nasal turbinates; K21.9 Gastro-esophageal reflux disease without esophagitis; F32.9 Major depressive disorder, single episode, unspecified; K82.9 Disease of gallbladder, unspecified; I10 Essential (primary) hypertension; H91.90 Unspecified hearing loss, unspecified ear; K58.9 Irritable bowel syndrome, unspecified; G43.909 Migraine, unspecified, not intractable, without status migrainosus; E66.9 Obesity, unspecified; Z68.31 Body mass index [BMI] 31.0-31.9, adult; E89.0 Postprocedural hypothyroidism; J44.9 Chronic obstructive pulmonary disease, unspecified; F17.200 Nicotine dependence, unspecified, uncomplicated; Z79.1 Long term (current) use of non-steroidal anti-inflammatories (NSAID); Z79.2 Long term (current) use of antibiotics; Z79.890 Hormone replacement therapy; Z79.891 Long term (current) use of opiate analgesic; Z79.899 Other long term (current) drug therapy; Z86.73 Personal history of transient ischemic attack (TIA), and cerebral infarction without residual deficits; Z82.5 Family history of asthma and other chronic lower respiratory diseases; Z88.1 Allergy status to other antibiotic agents; Z91.048 Other nonmedicinal substance allergy status; Z88.5 Allergy status to narcotic agent; Z88.8 Allergy status to other drugs, medicaments and biological substances; Z88.6 Allergy status to analgesic agent
CPT/HCPCS: 88305; 88300; 30520; 30140; 31267; 31259; 31253; C1726; J0171; J2250 ×2; J2405; J0690; J3010; J0330; J2704

== ENCOUNTER → 2018-12-16 | Outpatient (CLI) | payer MEDICARE, BC ==
[2018-12-16 16:56] LABS: Basophils % (A) 0 %; Eosinophils # (A) 0.2 k/uL (0-0.7); Eosinophils % (A) 2 %; HCT 43.9 % (34.0-46.0); HGB 14.9 gm/dL (11.4-16.0); Lymphocytes # (A) 2.5 k/uL (1.0-4.8); Lymphocytes % (A) 27 %; MCH 32.3 pg (25.0-35.0); MCV 94.9 fL (80.0-100.0); Mean Platelet Volume 7.6; Monocytes # (A) 0.5 k/uL (0-1.0); Monocytes % (A) 5 %; Neutrophils # (A) 6.1 k/uL (1.3-7.7); Neutrophils % (A) 65 %; Platelet Count 296 k/uL (150-450); RBC 4.62 m/uL (3.80-5.40); RDW 13.5 % (11.5-15.5); WBC 9.4 k/uL (3.8-10.6)
[2018-12-16 18:23] LABS: Erythrocyte Sedimentation Rate 3 mm/hr (0-20)
[2018-12-16 23:27] LABS: Protein, Total 6.9 g/dL (6.2-8.2)
[2018-12-17 00:27] LABS: Immunoglobulin E 8.42 IU/mL (0.00-114.00)
[2018-12-17 11:23] LABS: Immunoglobulin M 96.3 mg/dL (40.0-280.0)
[2018-12-17 11:49] LABS: Albumin 4.26 g/dL (3.80-4.90)
== END | disposition home or self-care (01) ==
LOC: LABWHC1 15:47
PROVIDERS: ATTEND Nurse Practitioner Family
DX: R51 Headache (principal); R53.83 Other fatigue
CPT/HCPCS: 36415; 82784; 82785; 84165; 85025; 85652

== ENCOUNTER → 2019-01-15 | Outpatient (CLI) | payer MEDICARE, BC ==
--- NOTE | 2019-01-15 20:17 | CT ---
EXAMINATION TYPE: CT sinus wo con DATE OF EXAM: 01/15/2019 COMPARISON: Prior CT sinus 10/09/2018 HISTORY: Pt had sinus surgery several months ago. Chronic sinusitis, migraines, swelling since sx. CT DLP: 642.50 mGycm. Automated Exposure Control for Dose Reduction was Utilized. TECHNIQUE: CT scan of the sinuses is performed without contrast, axial images are obtained, coronal r eformatted images are also reviewed. FINDINGS: The paranasal sinuses show interval change, the findings of acute sinusitis have resolved in the left maxillary sinus however there is inflammatory change in the sphenoid, ethmoid air cells, frontal sinus and mild inflammatory change in the bilateral maxillary sinuses, there may be mucus ret ention cyst or polyp in the right maxillary sinus. Bilateral antrostomies have been performed in the maxillary sinuses. Visualized portion of mastoid air cells show no abnormal opacification. The globes are intact bilate rally. There is posterior fusion anomaly at C1 as on prior exam. IMPRESSION: Postop changes, findings compatible with chronic sinusitis
== END | disposition home or self-care (01) ==
LOC: RADCTMAIN 16:41
PROVIDERS: ATTEND Nurse Practitioner Family
DX: J32.9 Chronic sinusitis, unspecified (principal); Z98.890 Other specified postprocedural states
CPT/HCPCS: 70486

== ENCOUNTER → 2019-03-03 | Outpatient (CLI) | payer MEDICARE, BC ==
--- NOTE | 2019-03-03 17:25 | CT ---
EXAMINATION TYPE: CT chest wo con DATE OF EXAM: 03/03/2019 COMPARISON: None HISTORY: COPD CT DLP: 224.40 mGycm, Automated exposure control for dose reduction was used. CONTRAST: Performed injected with 0 mL of Isovue 300. TECHNIQUE: Axial images were obtained at 5 mm thick sections. Reconstructed images are reviewed on [employer]oto[employer] computer in the coronal plane. FINDINGS: Thyroid appears to be surgically absent. No suspicious lung nodules or focal infiltrates are present. Significant findings to suggest emphysem atous change not present. No enlarged mediastinal or hilar adenopathy is evident. The ascending aorta diameter at the level o f the main pulmonary artery is 3.2 cm. The main pulmonary artery diameter at the bifurcation is 2.[address] sections are obtained through the upper abdomen. Abdomen is essentially unremarkable. IMPRESSIONS: 1. No acute process.
== END ==
LOC: RADCTMAIN 07:41
PROVIDERS: ATTEND Internal Medicine Pulmonary Disease
DX: J45.909 Unspecified asthma, uncomplicated (principal); J44.9 Chronic obstructive pulmonary disease, unspecified; M06.9 Rheumatoid arthritis, unspecified; Z59.1 Inadequate housing; Z72.0 Tobacco use
CPT/HCPCS: 71250

== ENCOUNTER → 2019-04-30 | Outpatient (CLI) | payer MEDICARE, BC ==
[2019-04-30 23:22] LABS: Magnesium 1.5 mg/dL (1.5-2.4)
== END | disposition home or self-care (01) ==
LOC: LABWHC1 16:35
PROVIDERS: ATTEND Nurse Practitioner Family
DX: E72.12 Methylenetetrahydrofolate reductase deficiency (principal); R51 Headache
CPT/HCPCS: 36415; 82607; 83090; 83735

== ENCOUNTER → 2019-07-12 | Outpatient (CLI) | payer MEDICARE, OTHER ==
--- NOTE | 2019-07-12 17:05 | MR ---
EXAMINATION TYPE: MR knee RT wo con DATE OF EXAM: 07/12/2019 COMPARISON: Previous dated 12/27/2017, plain film 07/09/2019 HISTORY: pain in rt knee TECHNIQUE: Multiplanar, multisequence imaging of the right knee is performed without IV contrast. FINDINGS: MEDIAL MENISCUS: Anterior and posterior horns are intact without tear. LATERAL MENISCUS: Stable, difficult to exclude some discontinuity of the posterior root of the latera l meniscus. CRUCIATE LIGAMENTS: Postop changes are noted status post anterior cruciate ligament repair, posterior cruciate ligament is intact, susceptibility artifact is present due to patient's hardware at the met aphysis of the distal femur. COLLATERAL LIGAMENTS: The medial collateral ligament and lateral collateral ligament complex are inta ct and unremarkable. EXTENSOR MECHANISM: Visualized quadriceps and patellar tendons are intact. EFFUSION: Small joint effusion is stable. POPLITEAL CYST: No popliteal/diaz cyst. TRICOMPARTMENT SPACES: Joint space loss in the lateral compartment CARTILAGE: Grade IV chondromalacia present along the lateral femoral condyle BONE MARROW SIGNAL: Subchondral cystic change present as on prior exam along the lateral femoral cond yle. OTHER: Marginal spurring again noted. There is some improvement in the fluid similar likely level of the proximal tibia as compared to prior exam. IMPRESSION: Postop changes, osteoarthritic change. Additional findings above. The posterior root anchor of the la teral meniscus may be discontinuous.
== END | disposition home or self-care (01) ==
LOC: RADMRIMAIN 08:57
PROVIDERS: ATTEND Orthopaedic Surgery
DX: M17.11 Unilateral primary osteoarthritis, right knee (principal); M94.261 Chondromalacia, right knee; M25.861 Other specified joint disorders, right knee; Z98.890 Other specified postprocedural states

== ENCOUNTER → 2019-07-27 | Outpatient (CLI) | payer MEDICARE, OTHER | END | disposition home or self-care (01) | LOC: LABWHC1 11:25 | PROVIDERS: ATTEND Orthopaedic Surgery | DX: Z53.9 Procedure and treatment not carried out, unspecified reason (principal) ==

== ENCOUNTER 2019-08-04 09:03 | Day surgery (SDC) | payer MEDICARE, OTHER ==
[2019-08-02 13:57] VITALS: BMI 29.2
--- NOTE | 2019-08-03 13:48 | HP ---
HISTORY AND PHYSICAL Surgery is scheduled for 08/04/2019. Breana Laughlin is a 39-year-old patient seen with progressive right knee pain. We discussed options. She elected to proceed with arthroscopy. Consent was obtained. PAST MEDICAL HISTORY: Gastroesophageal reflux disease, hypothyroidism, hypertension. PAST SURGICAL HISTORY: Hysterectomy, bilateral knee arthroscopies with ACL reconstruction. DAILY MEDICATIONS: 1. Prilosec. 2. Synthroid. 3. Catapres. 4. Lorazepam. ALLERGIES: Codeine. SOCIAL HISTORY: Smokes one pack of cigarettes daily. PHYSICAL EXAMINATION: Evaluation of the right knee: Her range of motion is 0-130. There is mild effusion present. Tenderness along the medial and lateral joint lines. Positive medial Starr's. Positive lateral Starr's. Ligaments are stable. Hip rotation is without pain. Her distal neurovascular exam is intact. RADIOGRAPHS: Radiographs of the right knee revealed moderate osteoarthritic changes as well as evidence for previous ACL reconstruction. An MRI of the right knee revealed lateral meniscal tear. IMPRESSION: 1. Internal derangement of right knee with lateral meniscal tear. 2. Right knee osteoarthritis. 3. Hypothyroidism. 4. Hypertension. 5. Tobacco use. PLAN: Right knee arthroscopy with partial meniscectomy, partial synovectomy, and debridement. Surgery is 08/04/2019. MMODL / IJN: [id number] /
[~2019-08-04 09:03] MED LIST changes: +DEXAMETHASONE SOD PHOSPHATE 10 MG/ML 1 ML VIAL IV ONE; -DEXAMETHASONE SOD PHOSPHATE 4 MG/ML 1 ML VIAL IV ONE; -FAMOTIDINE 20 MG/2 ML VIAL IV ONE; +HYDROmorphone 0.5 MG/0.5 ML SYRINGE IVP PRN; +MIDAZOLAM 2 MG/2 ML VIAL IV PRN; +SCOPOLAMINE 1.5MG/72HR PATCH TRANSDERM ONE; -fentaNYL (PF) 50 MCG/ML 2 ML AMP IV PRN
[2019-08-04] MEDS ORDERED: MIDAZOLAM 2 MG/2 ML VIAL ONE (10:45)
[2019-08-04] MEDS ORDERED: SUCCINYLCHOLINE CHLORIDE 100 MG/5 ML SYR IV ONE (10:45)
[2019-08-04] MEDS ORDERED: fentaNYL (PF) 50 MCG/ML 2 ML AMP ONE (10:45)
[2019-08-04] MEDS ORDERED: HYDROmorphone (PF) 1 MG/ML ONE (10:45)
[2019-08-04] MEDS ORDERED: ONDANSETRON 4 MG/2 ML VIAL ONE (10:45)
[2019-08-04] MEDS ORDERED: PROPOFOL 10 MG/ML 20 ML VIAL IV ONE (10:45)
[2019-08-04] MEDS ORDERED: LIDOCAINE 1% INJ 10MG/ML (20 ML MDV) ONE (10:45)
[2019-08-04] MEDS ORDERED: BUPIVACAINE (PF) 0.25% 30 ML VIAL SQ ONE ×2 (11:10→11:27)
--- NOTE | 2019-08-04 11:43 | P.OP ---
Date of Procedure: 08/04/19 Preoperative Diagnosis: Internal derangement right knee Postoperative Diagnosis: 1. Tear lateral meniscus right knee 2. Grade 4 chondromalacia lateral femoral condyle right knee 3. Reactive synovitis medial, lateral and suprapatellar compartments right Procedure(s) Performed: 1. Arthroscopic partial lateral meniscectomy right knee 2. Arthroscopic chondroplasty lateral femoral condyle right knee 3. Arthroscopic microfracture lateral femoral condyle right knee 4. Arthroscopic partial synovectomy medial, lateral and suprapatellar compartments right knee Anesthesia: FLIPA, local Surgeon: Pranay Hurtado Estimated Blood Loss (ml): 10 Pathology: none sent Condition: stable Disposition: PACU Indications for Procedure: 39-year-old patient seen with progressive right knee pain. After having treatment options discussed, she elected to proceed with arthroscopy. Operative Findings: See description of procedure Description of Procedure: Patient was taken to the operative suite. Patient underwent a general anestheti c by the department of anesthesia. Patient was given preoperative antibiotics. The right lower extremity was placed in a well-padded arthroscopic leg woods. The right leg was prepped and draped in the normal sterile orthopedic fashion. A lateral parapatellar and suprapatellar incision was made. Trochars were inserted. Arthroscopy was initiated. Suprapatellar pouch revealed diffuse thick reactive synovitis. The patellofemoral joint appeared to articulate congruently. There with grade 1 chondromalacia of the patellofemoral joint with no osteochondral tears present. The scope was guided into the medial gutter. No loose bodies or plica were identified. The scope was then guided into the medial compartment. A medial parapatellar incision was made. Trocar inserted followed by probe. Medial meniscus was probed and found to be stable. There were some grade 1 chondromalacia changes of the medial compartment with no osteochondral tears present. There was thick reactive synovitis anteriorly. A motorize shaver was introduced and a partial synovectomy was performed decompressing the reactive synovitis. There was good decompression of the synovitis. Scope and probe were then guided into the intercondylar notch. There was evidence for previous ACL graft which appeared intact. There was some laxity of the graft with a +1/2 intraoperative Patricia's. There was a good endp oint to this.. The scope and probe were then guided into lateral compartment. There was a complex tear involving the posterior horn of the lateral meniscus. There was an area of grade 3/4 chondromalacia along the lateral aspect of the lateral femoral condyle with osteochondral flap tears present. There was grade 2 chondromalacia of the lateral tibial plateau. There was reactive synovitis anteriorly. I performed a partial lateral meniscectomy. I performed a chondroplasty of the lateral femoral condyle. I performed a partial synovectomy. There was an area of exposed bone along the lateral femoral condyle. I introduced a microfracture awl and performed a microfracture to that area penetrating the bone with resultant bleeding at the microfracture site. The residual articular surface appeared stable. The residual meniscus was stable. There was good decompression of the synovitis. The scope was in guided back into the suprapatellar compartment. I introduced a motorized shaver into the superpatellar compartment. I debrided some piecemeal fragments of meniscus I encountered. I performed a partial synovectomy decompressing reactive synovitis. Instruments were now removed from the joint. The joint was infiltrated with .25% Marcaine. Steri-Strips were applied to the portal sites. Sterile dressings were applied. The patient was placed into a PALMER hose. No tourniquet was utilized. The patient was awakened, transferred to a bed and taken to recovery stable satisfactory condition.
[2019-08-04] MEDS ORDERED: KETOROLAC 30 MG/ML 1 ML VIAL IVP ONE (11:46)
[2019-08-04] MEDS ORDERED: diphenhydrAMINE 50 MG/ML 1 ML VIAL IVP ONE (11:46)
[2019-08-04 12:02] VITALS: TEMP 97.1
[2019-08-04] MEDS ORDERED: MEPERIDINE 50 MG/ML SYRINGE IVP ONE (12:40)
[2019-08-04 13:15] VITALS: RESP 20
[2019-08-04] MEDS ORDERED: HYDROcodone/APAP 7.5-325MG 1 EACH TAB PO ONE (13:21)
[2019-08-04 13:56] VITALS: BP 140/80; PULSE 98
== END 2019-08-04 14:45 | disposition home or self-care (01) ==
LOC: OR 09:03
PROVIDERS: ATTEND Orthopaedic Surgery
DX: M23.351 Other meniscus derangements, posterior horn of lateral meniscus, right knee (principal); M94.261 Chondromalacia, right knee; M65.861 Other synovitis and tenosynovitis, right lower leg; M17.11 Unilateral primary osteoarthritis, right knee; K21.9 Gastro-esophageal reflux disease without esophagitis; E03.9 Hypothyroidism, unspecified; I10 Essential (primary) hypertension; J44.9 Chronic obstructive pulmonary disease, unspecified; F17.210 Nicotine dependence, cigarettes, uncomplicated; Z88.5 Allergy status to narcotic agent; Z90.710 Acquired absence of both cervix and uterus; Z98.890 Other specified postprocedural states; Z79.899 Other long term (current) drug therapy; Z79.890 Hormone replacement therapy; Z88.8 Allergy status to other drugs, medicaments and biological substances; Z88.6 Allergy status to analgesic agent; Z88.1 Allergy status to other antibiotic agents; Z90.49 Acquired absence of other specified parts of digestive tract
CPT/HCPCS: 29881; 29879; J2250; J1200; J2175; J2405; J0690; J2001; J3010; J1885; J1170; J0330; J2704

== ENCOUNTER 2020-04-04 13:03 | Emergency (ER) | payer MEDICARE, OTHER ==
[2020-04-04 13:18] VITALS: RESP 18; TEMP 98.7
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
[2020-04-04 14:16] LABS: Basophils % (A) 1 %; Eosinophils # (A) 0.1 k/uL (0-0.7); Eosinophils % (A) 2 %; HGB 14.7 gm/dL (11.4-16.0); Lymphocytes # (A) 1.4 k/uL (1.0-4.8); Lymphocytes % (A) 25 %; MCH 33.1 pg (25.0-35.0); MCHC 34.1 g/dL (31.0-37.0); MCV 96.9 fL (80.0-100.0); Monocytes # (A) 0.4 k/uL (0-1.0); Monocytes % (A) 7 %; Neutrophils # (A) 3.6 k/uL (1.3-7.7); Neutrophils % (A) 64 %; Platelet Count 287 k/uL (150-450); RBC 4.44 m/uL (3.80-5.40); WBC 5.6 k/uL (3.8-10.6)
[2020-04-04 14:18] LABS: Appearance,Urine Clear (Clear); Bilirubin,Urine Negative (Negative); Blood,Urine Small (Negative); Color,Urine Light Yellow; Glucose,Urine (UA) Negative (Negative); Ketones,Urine Negative (Negative); Leukocyte Esterase,Urine Negative (Negative); Nitrite,Urine Negative (Negative); Protein,Urine Negative (Negative); RBC,Urine 1 /hpf (0-5); Specific Gravity,Urine 1.006 (1.001-1.035); Urobilinogen,Urine <2.0 mg/dL (<2.0); WBC,Urine <1 /hpf (0-5)
[2020-04-04 14:27] LABS: ALT 31 U/L (4-34); AST 40 U/L (14-36); African American GFR (CKD) >90 (>60 ml/min/1.73 sqM); Albumin 4.3 g/dL (3.5-5.0); Alkaline Phosphatase 60 U/L (38-126); Anion Gap 7 mmol/L; Blood Urea Nitrogen 12 mg/dL (7-17); Calcium 8.8 mg/dL (8.4-10.2); Carbon Dioxide 21 mmol/L (22-30); Chloride 110 mmol/L (98-107); Glucose 148 mg/dL (74-99); Non-African American GFR(CKD) >90 (>60 ml/min/1.73 sqM); Potassium 3.7 mmol/L (3.5-5.1); Sodium 138 mmol/L (137-145); Total Bilirubin 0.6 mg/dL (0.2-1.3); Total Protein 6.9 g/dL (6.3-8.2)
--- NOTE | 2020-04-04 14:47 | USB ---
Reason for exam: clinical finding. History: Family history of breast cancer in maternal grandmother at age 50. Took hormonal contraceptives for 10 years beginning at age 17. US Breast Limited RT Right limited breast ultrasound including focal area of concern, retroareolar and axilla demonstrates a 1.4 x 1.6cm avascular, hyperechoic, superficial lesion at 10 o'clock just below the dermal layer, questionable resolving cellulitis, no formed fluid collection. ASSESSMENT: Probably benign, BI-RAD 3 RECOMMENDATION: Clinical management of the right breast. Manage patient on a clinical basis.
[2020-04-04 14:51] VITALS: BP 133/88; PULSE 82
[2020-04-04] MEDS ORDERED: SULFAMETHOX-TMP 800-160MG 1 EACH TAB PO STA (15:08)
== END 2020-04-04 15:17 | disposition home or self-care (01) ==
LOC: EC 13:03
DX: N61.0 Mastitis without abscess (principal); F41.9 Anxiety disorder, unspecified; F31.9 Bipolar disorder, unspecified; F43.10 Post-traumatic stress disorder, unspecified; F17.200 Nicotine dependence, unspecified, uncomplicated; J44.9 Chronic obstructive pulmonary disease, unspecified; K21.9 Gastro-esophageal reflux disease without esophagitis; E07.9 Disorder of thyroid, unspecified; Z79.899 Other long term (current) drug therapy; Z90.89 Acquired absence of other organs; Z86.14 Personal history of Methicillin resistant Staphylococcus aureus infection; Z88.1 Allergy status to other antibiotic agents; Z88.5 Allergy status to narcotic agent; Z88.8 Allergy status to other drugs, medicaments and biological substances
CPT/HCPCS: 36415; 80053; 81001; 83605; 85025; 87040; 99284

== ENCOUNTER 2020-04-05 13:57 | Emergency (ER) | payer MEDICARE, OTHER ==
[2020-04-05 14:06] VITALS: TEMP 97.9
[2020-04-05] MEDS ORDERED: LORazepam 2 MG/ML INJ IV STA (14:23)
[2020-04-05] MEDS ORDERED: METOCLOPRAMIDE 5 MG/ML 2 ML VIAL IVP STA (14:24)
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
[2020-04-05] MEDS ORDERED: MORPHINE SULFATE 4 MG/ML SYRINGE IV STA (14:37)
[2020-04-05 14:55] LABS: Appearance,Urine Clear (Clear); Basophils % (A) 1 %; Bilirubin,Urine Negative (Negative); Blood,Urine Negative (Negative); Color,Urine Colorless; Eosinophils # (A) 0.2 k/uL (0-0.7); Eosinophils % (A) 4 %; Glucose,Urine (UA) Negative (Negative); HCT 41.8 % (34.0-46.0); HGB 14.4 gm/dL (11.4-16.0); Ketones,Urine Negative (Negative); Leukocyte Esterase,Urine Negative (Negative); Lymphocytes # (A) 1.6 k/uL (1.0-4.8); Lymphocytes % (A) 34 %; MCH 34.1 pg (25.0-35.0); MCHC 34.4 g/dL (31.0-37.0); MCV 99.1 fL (80.0-100.0); Mean Platelet Volume 7.1; Monocytes # (A) 0.3 k/uL (0-1.0); Monocytes % (A) 5 %; Neutrophils # (A) 2.6 k/uL (1.3-7.7); Neutrophils % (A) 55 %; Nitrite,Urine Negative (Negative); Platelet Count 263 k/uL (150-450); Protein,Urine Negative (Negative); RBC 4.22 m/uL (3.80-5.40); RDW 12.4 % (11.5-15.5); Specific Gravity,Urine 1.003 (1.001-1.035); Urobilinogen,Urine <2.0 mg/dL (<2.0); WBC 4.7 k/uL (3.8-10.6)
[2020-04-05 15:02] LABS: ALT 37 U/L (4-34); AST 45 U/L (14-36); African American GFR (CKD) >90 (>60 ml/min/1.73 sqM); Albumin 4.3 g/dL (3.5-5.0); Alkaline Phosphatase 58 U/L (38-126); Anion Gap 9 mmol/L; Blood Urea Nitrogen 10 mg/dL (7-17); Calcium 9.1 mg/dL (8.4-10.2); Carbon Dioxide 21 mmol/L (22-30); Chloride 110 mmol/L (98-107); Glucose 100 mg/dL (74-99); Non-African American GFR(CKD) >90 (>60 ml/min/1.73 sqM); Sodium 140 mmol/L (137-145); Total Bilirubin 0.3 mg/dL (0.2-1.3)
[2020-04-05] MEDS ORDERED: SODIUM CHLORIDE 0.9% 1,000 ML IV ONE (15:22)
--- NOTE | 2020-04-05 15:55 | CT ---
EXAMINATION TYPE: CT brain wo con DATE OF EXAM: 04/05/2020 COMPARISON: MR brain 01/14/2018 HISTORY: Headache with weakness CT DLP: 1120 mGycm. Automated Exposure Control for Dose Reduction was Utilized. TECHNIQUE: CT scan of the head is performed without contrast. FINDINGS: There is no acute intracranial hemorrhage, mass effect, or midline shift identified. The ventricles and sulci are within normal limits in size. The globes are intact and the visualized sin uses are showing some minimal inflammatory change in the bilateral maxillary sinuses. IMPRESSION: No acute intracranial hemorrhage, mass effect, or midline shift is seen.
--- NOTE | 2020-04-05 15:58 | CT ---
CT angiogram of the brain HISTORY: History of aneurysm, headache Helical acquisition through the brain during dynamic administration 100 cc [id number] IV. Three-dimen sional reconstructions on an alternate workstation. Automated exposure control for dose reduction, DL P 1001.6 mGycm. Correlation to MRA brain 01/14/2018 Anterior posterior circulation are patent. There is no evident dissection, aneurysm, or embolus. IMPRESSION: Normal brain CTA
[2020-04-05 16:18] VITALS: BP 109/86; PULSE 80; RESP 18
== END 2020-04-05 16:12 | disposition home or self-care (01) ==
LOC: EC 13:57
DX: N61.0 Mastitis without abscess (principal); J44.9 Chronic obstructive pulmonary disease, unspecified; I10 Essential (primary) hypertension; K21.9 Gastro-esophageal reflux disease without esophagitis; E07.9 Disorder of thyroid, unspecified; F41.9 Anxiety disorder, unspecified; F17.200 Nicotine dependence, unspecified, uncomplicated; Z79.899 Other long term (current) drug therapy; Z79.890 Hormone replacement therapy; Z88.1 Allergy status to other antibiotic agents; Z88.5 Allergy status to narcotic agent; Z88.6 Allergy status to analgesic agent; Z88.8 Allergy status to other drugs, medicaments and biological substances; Z86.73 Personal history of transient ischemic attack (TIA), and cerebral infarction without residual deficits
CPT/HCPCS: 36415; 80053; 83605; 85025; 81003; 87040; 70496; 70450; 99284; 96365; 96375 ×2; 96361; J2060; J2765; J0696; Q9967

== ENCOUNTER 2020-07-14 07:48 | Day surgery (SDC) | payer MEDICARE, OTHER ==
[2020-07-12 12:26] VITALS: BMI 30.2
[2020-07-14] MEDS ORDERED: NORFLURANE/PENTAFLUOROPROPANE 103.5 ML SPRAY (PAIN EASE) TOPICAL ONE (08:42)
[2020-07-14 08:44] VITALS: TEMP 97.3
[2020-07-14] MEDS: LACTATED RINGERS 1,000 ML IV SCH ×2 (08:44→09:02)
[2020-07-14] MEDS ORDERED: LIDOCAINE 1% (10MG/ML) FOR IV START INTRADERMA ONE (08:45)
[2020-07-14] MEDS ORDERED: MIDAZOLAM 2 MG/2 ML VIAL ONE (09:03)
[2020-07-14] MEDS ORDERED: fentaNYL (PF) 50 MCG/ML 2 ML AMP ONE (09:03)
[2020-07-14] MEDS ORDERED: PROPOFOL 10 MG/ML 20 ML VIAL IV ONE (09:03)
--- NOTE | 2020-07-14 09:22 | P.PCN ---
Date of Procedure: 07/14/20 Procedure(s) Performed: Brief history: Patient is a pleasant 40-year-old white female scheduled for an elective upper endoscopy as well as colonoscopy as a part of evaluation of GERD, abdominal pain, nausea vomiting and diarrhea with some blood in the stools for the last 1 month duration. Procedure performed: Esophagogastroduodenoscopy with biopsy Colonoscopy Preoperative diagnosis: GERD Abdominal pain/intermittent nausea vomiting Diarrhea and rectal bleeding Anesthesia: [facility] [place] Procedure: After informed consent was obtained from the patient was brought into the endoscopy unit and IV sedation was administered by anesthesia under continuous monitoring. Initially upper endoscopy was done. The Olympus GF 160 video endoscope was inserted inserted into the mouth and esophagus intubated without any difficulty and was gradually advanced into the stomach and duodenum and carefully examined. The bulb and second part of the duodenum appeared normal. Abscesses were done from the duodenum to rule out celiac disease. The scope was then withdrawn into the stomach adequately insufflated with air and upon careful examination the antrum had mild gastritis and biopsies were done from this area. The body, cardia and fundus appeared normal. The scope was then withdrawn into the esophagus. The GE junction was located at 40 cm to the incisors. It appeared regular wisuperficial erosions consistent with LA grade B reflux esophagitis. Rest of the esophagus appeared normal. Patient tolerated the procedure well. At this time the patient continued to remain sedation. Initial digital rectal examination was normal. Olympus CF 160 video colonoscope was then inserted into the rectum and gradually advanced to the cecum without any difficulty. Careful examination was performed as the scope was gradually being withdrawn. The prep was excellent. The cecum, ascending colon, transverse colon, descending colon, sigmoid colon and rectum appeared normal. the proximal rectum there was a 5 mm polyp removed by snare polypectomy. Retroflexion was performed in the rectum and no lesions were noted. Patient tolerated the procedure well. Impression: 1. Upper Endoscopy revealed bilateral gastritis and LA grade B reflux esophagitis 2. Colonoscopy revealed a 5 mm proximal rectal polyp status post polypectomy. Recommendations: Findings of this examination were discussed with the patient as well pacheco family. She was advised to follow with the biopsy results. If the biopsy shows an adenoma she can have a repeat colonoscopy in 5 years. She will continue with her current medications and follow antireflux measures.
[2020-07-14 09:26] VITALS: RESP 17
[2020-07-14 09:40] VITALS: PULSE 78
[2020-07-14 10:28] VITALS: BP 150/90
== END 2020-07-14 10:00 | disposition home or self-care (01) ==
LOC: ORWHC2ENDO 07:48
PROVIDERS: ATTEND Internal Medicine Gastroenterology
DX: D12.8 Benign neoplasm of rectum (principal); K62.89 Other specified diseases of anus and rectum; K62.5 Hemorrhage of anus and rectum; K29.70 Gastritis, unspecified, without bleeding; K21.00 Gastro-esophageal reflux disease with esophagitis, without bleeding; I10 Essential (primary) hypertension; J44.9 Chronic obstructive pulmonary disease, unspecified; F17.200 Nicotine dependence, unspecified, uncomplicated; E07.9 Disorder of thyroid, unspecified; Z79.890 Hormone replacement therapy; Z79.899 Other long term (current) drug therapy; Z88.6 Allergy status to analgesic agent; Z88.5 Allergy status to narcotic agent; Z88.8 Allergy status to other drugs, medicaments and biological substances; Z98.890 Other specified postprocedural states; F41.9 Anxiety disorder, unspecified
CPT/HCPCS: 88305; 45380; 45385; 43239; J2250; J3010; J2704

== ENCOUNTER → 2020-09-01 | Outpatient (CLI) | payer MEDICARE, OTHER ==
[2020-09-01 11:16] LABS: Appearance,Urine Clear (Clear); Bilirubin,Urine Negative (Negative); Blood,Urine Negative (Negative); Color,Urine Light Yellow; Glucose,Urine (UA) Negative (Negative); Ketones,Urine Negative (Negative); Leukocyte Esterase,Urine Negative (Negative); Nitrite,Urine Negative (Negative); Protein,Urine Negative (Negative); Specific Gravity,Urine 1.004 (1.001-1.035); Urobilinogen,Urine <2.0 mg/dL (<2.0)
[2020-09-01 11:30] LABS: ALT 30 U/L (4-34); AST 26 U/L (14-36); African American GFR (CKD) >90 (>60 ml/min/1.73 sqM); Albumin 4.7 g/dL (3.5-5.0); Albumin/Globulin Ratio 1.8; Alkaline Phosphatase 56 U/L (38-126); Anion Gap 9 mmol/L; Blood Urea Nitrogen 13 mg/dL (7-17); Calcium 9.5 mg/dL (8.4-10.2); Carbon Dioxide 24 mmol/L (22-30); Chloride 103 mmol/L (98-107); Globulin 2.6 g/dL; Glucose 95 mg/dL (74-99); Non-African American GFR(CKD) >90 (>60 ml/min/1.73 sqM); Sodium 136 mmol/L (137-145); Total Bilirubin 0.5 mg/dL (0.2-1.3); Total Protein 7.3 g/dL (6.3-8.2)
[2020-09-01 17:03] LABS: INR 0.94 (0.90-1.11); Prothrombin Time 10.3 sec (9.9-11.9)
[2020-09-01 19:42] LABS: Basophils # (A) 0.04 X 10*3/uL (0.00-0.10); Basophils % (A) 0.7 %; Eosinophils % (A) 1.7 %; HCT 39.2 % (37.2-46.3); HGB 12.9 g/dL (12.0-15.0); Lymphocytes # (A) 1.74 X 10*3/uL (0.90-5.00); Lymphocytes % (A) 29.7 %; MCH 33.6 pg (27.0-32.0); MCHC 32.9 g/dL (32.0-37.0); MCV 102.1 fL (80.0-97.0); Mean Platelet Volume 9.8 fL (9.5-12.2); Monocytes % (A) 6.8 %; Neutrophils # (A) 3.55 X 10*3/uL (1.80-7.70); Neutrophils % (A) 60.8 %; Platelet Count 307 X 10*3/uL (140-440); RBC 3.84 X 10*6/uL (4.10-5.20); RDW 12.7 % (11.5-14.5); WBC 5.85 X 10*3/uL (4.50-10.00)
[2020-09-01 23:01] LABS: Erythrocyte Sedimentation Rate 5 mm/Hr (0-20)
[2020-09-02 03:23] LABS: % Iron Saturation 31.35 (12.00-45.00); Iron 116 ug/dL (50-170); Rheumatoid Factor, Qnt 6 IU/mL (0-15); Total Iron Binding Capacity 370 ug/dL (228-460)
== END | disposition home or self-care (01) ==
LOC: LABWHC1 09:35
PROVIDERS: ATTEND Internal Medicine
DX: M79.10 Myalgia, unspecified site (principal); I10 Essential (primary) hypertension; R19.7 Diarrhea, unspecified; R59.9 Enlarged lymph nodes, unspecified; R53.83 Other fatigue; R31.9 Hematuria, unspecified; R23.3 Spontaneous ecchymoses
CPT/HCPCS: 36415; 80053; 81003; 82272; 82306; 82607; 83540; 83550; 83605; 83630; 84439; 84481; 85025; 85610; 85652; 86431; 87045; 87046; 87324; 87328; 87329

== ENCOUNTER → 2020-09-01 | Outpatient (CLI) | payer MEDICARE, OTHER ==
--- NOTE | 2020-09-01 16:05 | US ---
EXAMINATION TYPE: US abdomen complete DATE OF EXAM: 09/01/2020 COMPARISON: US 2018 CLINICAL HISTORY: R10.9 abd pain/pelvic pain, R31.9 hematuria. Abdomen pain x couple months, history of cholecystectomy EXAM MEASUREMENTS: Liver Length: 17.6 cm CBD: 0.6 cm Spleen: 9.5 cm Right Kidney: 10.4 x 4.2 x 4.1 cm Left Kidney: 9.5 x 5.9 x 5.0 cm Pancreas: visualized portions wnl, limited by overlying midline bowel gas Liver: 0.9cm cyst seen, mildly course echotexture Gallbladder: surgically absent Evidence for sonographic Mesa's sign: no CBD: wnl Spleen: wnl Right Kidney: wnl Left Kidney: wnl Upper IVC: wnl Abd Aorta: wnl IMPRESSION: 1. Hepatomegaly with a Small hepatic cyst. 2. Abdomen ultrasound is otherwise unremarkable as visualized
--- NOTE | 2020-09-01 16:07 | US ---
EXAMINATION TYPE: US pelvic complete DATE OF EXAM: 09/01/2020 COMPARISON: NONE CLINICAL HISTORY: R10.9 abd pain/pelvic pain, R31.9 hematuria. Abdomen pain x couple months, 6, para 4, miscarriage 1, ectopic 1, history of partial hysterectomy. TECHNIQUE: . Transabdominal sonographic images of the pelvis were acquired. Date of LMP: uterus surgically absent EXAM MEASUREMENTS: Right Ovary: 2.8 x 1.6 x 1.8 cm Left Ovary: 2.7 x 1.4 x 1.9 cm 1. Uterus: surgically absent 2. Endometrium: surgically absent 3. Right Ovary: wnl 4. Left Ovary: wnl 5. Bilateral Adnexa: wnl 6. Posterior cul-de-sac: wnl IMPRESSION: 1. Post hysterectomy pelvic ultrasound
== END ==
LOC: RADUSWWP 08:44
PROVIDERS: ATTEND Internal Medicine
DX: K76.89 Other specified diseases of liver (principal); R16.0 Hepatomegaly, not elsewhere classified; R10.2 Pelvic and perineal pain; Z90.710 Acquired absence of both cervix and uterus
CPT/HCPCS: 76700; 76856

== ENCOUNTER → 2020-12-23 | Outpatient (CLI) | payer MEDICARE, OTHER ==
[2020-12-23 10:18] LABS: Basophils % (A) 1 %; Eosinophils # (A) 0.1 k/uL (0-0.7); Eosinophils % (A) 1 %; HCT 41.6 % (34.0-46.0); HGB 14.4 gm/dL (11.4-16.0); Lymphocytes # (A) 1.7 k/uL (1.0-4.8); Lymphocytes % (A) 23 %; MCH 32.7 pg (25.0-35.0); MCHC 34.6 g/dL (31.0-37.0); MCV 94.6 fL (80.0-100.0); Mean Platelet Volume 7.9; Monocytes # (A) 0.4 k/uL (0-1.0); Monocytes % (A) 5 %; Neutrophils # (A) 5.2 k/uL (1.3-7.7); Neutrophils % (A) 70 %; Platelet Count 309 k/uL (150-450); RDW 13.1 % (11.5-15.5); WBC 7.3 k/uL (3.8-10.6)
[2020-12-23 10:20] LABS: Potassium 4.3 mmol/L (3.5-5.1)
== END | disposition home or self-care (01) ==
LOC: LABPAT 08:49
PROVIDERS: ATTEND Orthopaedic Surgery
DX: Z01.812 Encounter for preprocedural laboratory examination (principal); M23.91 Unspecified internal derangement of right knee
CPT/HCPCS: 80051; 85025

== ENCOUNTER 2020-12-28 10:20 | Day surgery (SDC) | payer MEDICARE, OTHER ==
[2020-12-25 12:32] VITALS: BMI 28.3
--- NOTE | 2020-12-27 20:16 | HP ---
HISTORY AND PHYSICAL HISTORY: Breana Laughlin is a 40-year-old patient seen with progressive right knee pain. We discussed treatment options. She elected to proceed with right knee arthroscopy. Consent was obtained. PAST MEDICAL HISTORY: Hypertension, hypothyroidism. PAST SURGICAL HISTORY: Hysterectomy, ACL reconstruction. MEDICATIONS: Prilosec, Synthroid, Catapres, meloxicam. ALLERGIES: CODEINE. SOCIAL HISTORY: Smokes 1 pack of cigarettes daily. PHYSICAL EVALUATION OF THE RIGHT KNEE: Range of motion is zero to 130. Mild effusion. Tenderness along the lateral joint with a positive lateral Starr's. Ligaments stable. Hip rotation without pain. Distal neurovascular exam intact. RADIOGRAPHS: Some osteoarthritic changes and metallic Endobutton consistent with previous ACL reconstruction. MRI of the right knee revealed a lateral meniscal tear and osteoarthritis changes. IMPRESSION: 1. Internal derangement of right knee lateral meniscal tear. 2. Right knee osteoarthritis. 3. Hypothyroidism. 4. Hypertension. PLAN: Right knee arthroscopy with partial lateral meniscectomy and debridement. MMODL / IJN: [id number] /
[~2020-12-28 10:20] MED LIST changes: -DEXAMETHASONE SOD PHOSPHATE 10 MG/ML 1 ML VIAL IV ONE; -HYDROmorphone 0.5 MG/0.5 ML SYRINGE IVP PRN; +LIDOCAINE 1% (10MG/ML) FOR IV START INTRADERMA PRN; -LIDOCAINE 1% 20 ML VIAL (10MG/ML) FOR IV START INTRADERMA PRN; -MIDAZOLAM 2 MG/2 ML VIAL IV PRN; -ONDANSETRON 4 MG/2 ML VIAL IVP ONE; -SCOPOLAMINE 1.5MG/72HR PATCH TRANSDERM ONE
[2020-12-28] MEDS ORDERED: ONDANSETRON 4 MG/2 ML VIAL ONE (10:49)
[2020-12-28] MEDS: MIDAZOLAM 2 MG/2 ML VIAL IVP ONE ×3 (11:08→12:19)
[2020-12-28] MEDS ORDERED: fentaNYL (PF) 50 MCG/ML 2 ML AMP ONE (11:14)
[2020-12-28] MEDS ORDERED: MIDAZOLAM 2 MG/2 ML VIAL ONE (11:14)
[2020-12-28] MEDS ORDERED: LIDOCAINE 1% INJ 10MG/ML (20 ML MDV) ONE (11:14)
[2020-12-28] MEDS ORDERED: PROPOFOL 10 MG/ML 20 ML VIAL IV ONE (11:14)
[2020-12-28] MEDS ORDERED: BUPIVACAINE (PF) 0.25% 30 ML VIAL SQ ONE (11:14)
[2020-12-28] MEDS ORDERED: BUPIVACAINE (PF) 0.25% 30 ML VIAL INTRAARTIC ONE (11:45)
[2020-12-28 11:59] VITALS: TEMP 96.7
[2020-12-28] MEDS ORDERED: HYDROmorphone 0.5 MG/0.5 ML SYRINGE IVP ONE (12:00)
[2020-12-28] MEDS ORDERED: KETOROLAC 15 MG/ML 1 ML VIAL IVP ONE (12:06)
--- NOTE | 2020-12-28 12:06 | P.OP ---
Date of Procedure: 12/28/20 Preoperative Diagnosis: Internal derangement right knee Postoperative Diagnosis: 1. Tear lateral meniscus right knee 2. Clyclops lesion right knee 3. Reactive synovitis medial, lateral and suprapatellar compartments right knee Procedure(s) Performed: 1. Arthroscopic partial lateral meniscectomy right knee 2. Arthroscopic excision cyclops lesion right knee 3. Arthroscopic partial synovectomy medial, lateral and suprapatellar compartments right knee Anesthesia: FLIPA, local Surgeon: Pranay Hurtado Estimated Blood Loss (ml): 7 Pathology: none sent Condition: stable Disposition: PACU Indications for Procedure: 40-year-old patient seen with progressive right knee pain. After treatment options were discussed, she elected to proceed with arthroscopy. Operative Findings: See description of procedure Description of Procedure: Patient was taken to the operative suite. Patient underwent a general anesthetic by the department of anesthesia. Patient was given preoperative antibiotics. The right lower extremity was placed in a well-padded arthroscopic leg woods. The right leg was prepped and draped in the normal sterile orthopedic fashion. A lateral parapatellar and suprapatellar incision was made. Trochars were inserted. Arthroscopy was initiated. Suprapatellar pouch revealed diffuse thick reactive synovitis. The patellofemoral joint appeared to articulate congruently. There as grade 1 chondromalacia with no significant tears present. The scope was guided into the medial gutter. No loose bodies or plica were identified. The scope was then guided into the medial compartment. A medial parapatellar incision was made. Trocar inserted followed by probe. The medial meniscus was probed and found to be stable both some mild fraying. There was no significant chondromalacia of the medial compartment. There was thick reactive synovitis anteriorly. I introduced a motorized shaver and debrided some of that fraying of the meniscus and then I performed a partial synovectomy decompressing the reactive synovitis. The shaver was removed. There was good decompression of the synovitis. Scope and probe were then guided into the intercondylar notch. Appeared to be a large cyclops lesion an teriorly. This did seem to impinge and limit extension. I introduced a motorized shaver and debrided that out. There was a calcific component to it and I introduced a pituitary forceps and removed that calcific area. I could clearly see the ACL graft. Cruciates were identified, probed and found to be stable. The scope and probe were then guided into lateral compartment. The lateral meniscus revealed a large white zone tear involving the posterior horn of the lateral meniscus extending into the midbody. There were grade 1/2 under malacia of the lateral compartment. There was thick reactive synovitis. I performed a partial lateral meniscectomy getting down to stable meniscal tissue. I performed a partial synovectomy decompressing the reactive synovitis. The shaver was removed. The residual meniscus was stable. There was good decompression of the synovitis. The scope was in guided back into the suprapatellar compartment. I introduced a motorized shaver into the suprapatell ar compartment. I debrided out some piecemeal fragments of meniscus I encountered. I performed a partial synovectomy decompressing the reactive synovitis. The shaver was removed. There was good decompression was synovitis. I took one more look on the entire knee, no residual debris. Instruments were now removed from the joint. The joint was infiltrated with .25% Marcaine. Steri-Strips were applied to the portal sites. Sterile dressings were applied. The patient was placed into a PALMER hose. No tourniquet was utilized. The patient was awakened, transferred to a bed and taken to recovery stable satisfactory condition.
[2020-12-28] MEDS ORDERED: HYDROmorphone 0.2 MG/1 ML SYRINGE IVP ONE (12:07)
[2020-12-28] MEDS: MEPERIDINE 50 MG/ML SYRINGE IVP ONE ×2 (12:15→12:23)
[2020-12-28 12:51] VITALS: RESP 16
[2020-12-28] MEDS ORDERED: LACTATED RINGERS 1,000 ML IV ONE (12:52)
[2020-12-28 13:17] VITALS: BP 124/83; PULSE 84
== END 2020-12-28 14:00 | disposition home or self-care (01) ==
LOC: OR 10:20
PROVIDERS: ATTEND Orthopaedic Surgery
DX: M23.200 Derangement of unspecified lateral meniscus due to old tear or injury, right knee (principal); M65.9 Synovitis and tenosynovitis, unspecified; M25.861 Other specified joint disorders, right knee; I10 Essential (primary) hypertension; E03.9 Hypothyroidism, unspecified; F17.210 Nicotine dependence, cigarettes, uncomplicated; Z90.710 Acquired absence of both cervix and uterus; Z98.890 Other specified postprocedural states; Z79.1 Long term (current) use of non-steroidal anti-inflammatories (NSAID); Z79.890 Hormone replacement therapy; Z79.899 Other long term (current) drug therapy; Z88.5 Allergy status to narcotic agent; Z88.6 Allergy status to analgesic agent; Z88.1 Allergy status to other antibiotic agents; Z88.8 Allergy status to other drugs, medicaments and biological substances
CPT/HCPCS: 29881; 29876; J2250; J2175; J2405; J0690; J2001; J3010; J1885; J2704; J1170 ×2

== ENCOUNTER → 2021-03-07 | Outpatient (CLI) | payer MEDICARE, OTHER ==
--- NOTE | 2021-03-07 10:30 | MR ---
EXAMINATION TYPE: MR knee RT wo con DATE OF EXAM: 03/07/2021 COMPARISON: 07/12/2019 and radiograph 11/24/2020 HISTORY: 40-year-old female Right Knee Pain TECHNIQUE: Multiplanar, multisequence imaging of the right knee is performed without IV contrast. FINDINGS: Post surgical changes ACL graft reconstruction is redemonstrated. The graft appears intact. There may be some progression in degenerative change given slight greater degree of thickening. Similar gangli on cyst along the lateral margin of the distal femur at the proximal graft attachment site measuring up to 2.3 cm. The PCL, MCL, and LCL complex appear intact. The posterior horn of the lateral meniscus is now diminutive with tear extending into the meniscal maya dy. The posterior root attachment site is not well seen. Moderate irregular cartilage loss is present in the lateral compartment. There is a more extensive ca rtilage loss along the mid weightbearing aspect of the lateral compartment. There is focal subchondra l bony irregularity and cystic change within the lateral femoral condyle there with some associated s ubchondral marrow edema which has progressed from prior exam. Subchondral sclerosis on the tibial belem e has progressed. Medial meniscus appears intact and overall medial compartment articular cartilage volume is maintaine d. Overall patellofemoral compartment articular cartilage volume is maintained. Extensor mechanism is intact. Scarring in Hoffa's fat from prior arthroscopic surgery. Moderate knee joint effusion and mild chronic synovitis, increased from prior. No Jeronimo's cyst. There is aberrant high takeoff of the anterior tibial artery which courses deep to the popliteus musc le. Extensive red marrow reconversion is redemonstrated. No definite suspicious bone marrow replacement. IMPRESSION: 1. Intact ACL graft reconstruction. There is slightly greater degree of thickening suggesting some de generative change within the graft. 2. Interval posterior root tear of the lateral meniscus. The posterior horn is markedly diminutive (p ost surgical partial meniscectomy versus macerated tear, clinically correlate) and tear extends into the body of the lateral meniscus. 3. Moderate overall lateral compartmental osteoarthrosis, progressed from 07/12/2019 with some more fo karthik severe areas of cartilage thinning along the mid weightbearing aspect. Reactive subchondral marro w edema. 4. Moderate knee joint effusion and mild chronic synovitis. 5. Incidental aberrant high takeoff of the anterior tibial artery which courses deep to the popliteus muscle. 6. Stable extensive red marrow hyperplasia which may be seen in the setting of anemia, obesity, smoki ng, or chronic disease.
== END | disposition home or self-care (01) ==
LOC: RADMRIMAIN 06:40
PROVIDERS: ATTEND Internal Medicine
DX: M17.11 Unilateral primary osteoarthritis, right knee (principal); M65.861 Other synovitis and tenosynovitis, right lower leg; M23.351 Other meniscus derangements, posterior horn of lateral meniscus, right knee

== ENCOUNTER → 2021-03-23 | Outpatient (CLI) | payer MEDICARE, OTHER ==
[2021-03-23 14:47] LABS: Basophils % (A) 1 %; Eosinophils # (A) 0.2 k/uL (0-0.7); Eosinophils % (A) 3 %; HCT 40.6 % (34.0-46.0); HGB 13.5 gm/dL (11.4-16.0); Lymphocytes # (A) 1.8 k/uL (1.0-4.8); Lymphocytes % (A) 27 %; MCH 33.3 pg (25.0-35.0); MCHC 33.3 g/dL (31.0-37.0); MCV 100.1 fL (80.0-100.0); Mean Platelet Volume 7.9; Monocytes # (A) 0.4 k/uL (0-1.0); Monocytes % (A) 6 %; Neutrophils # (A) 4.2 k/uL (1.3-7.7); Neutrophils % (A) 62 %; Platelet Count 290 k/uL (150-450); RBC 4.06 m/uL (3.80-5.40); RDW 12.9 % (11.5-15.5); WBC 6.8 k/uL (3.8-10.6)
[2021-03-23 14:55] LABS: Potassium 3.9 mmol/L (3.5-5.1)
== END | disposition home or self-care (01) ==
LOC: LABPAT 13:43
PROVIDERS: ATTEND Orthopaedic Surgery
DX: Z01.812 Encounter for preprocedural laboratory examination (principal); M23.91 Unspecified internal derangement of right knee
CPT/HCPCS: 36415; 80051; 85025

== ENCOUNTER 2021-03-28 09:24 | Day surgery (SDC) | payer MEDICARE, OTHER ==
[2021-03-26 11:56] VITALS: BMI 24.5
--- NOTE | 2021-03-27 19:02 | HP ---
HISTORY AND PHYSICAL DATE OF SURGERY: 03/28/2021 Breana Laughlin is a 40-year-old patient seen with right knee pain. We discussed options. She elected to proceed with arthroscopy. Consent was obtained. PAST MEDICAL HISTORY: Gastroesophageal reflux disease, osteoarthritis, depression. PAST SURGICAL HISTORY: Hysterectomy, bilateral knee arthroscopy, knee arthroscopy. DAILY MEDICATIONS: Synthroid, lorazepam, meloxicam. ALLERGIES: CODEINE. SOCIAL HISTORY: She smokes one pack of cigarettes daily. PHYSICAL EVALUATION OF THE RIGHT KNEE: Range of motion is zero to 130. Mild effusion. Tenderness, lateral joint line. Positive lateral Starr's. Ligaments stable. Hip rotation without pain. Distal neurovascular exam intact. IMAGING: Previous radiographs of the right knee revealed some osteoarthritic changes. MRI right knee revealed lateral meniscal tear, osteoarthritis and effusion. IMPRESSION: 1. Internal derangement of right knee with lateral meniscal tear. 2. Right knee osteoarthritis. 3. Hypothyroidism. PLAN: Right knee arthroscopy with partial meniscectomy and debridement. MMODL / IJN: [id number] /
[~2021-03-28 09:24] MED LIST changes: +ONDANSETRON 4 MG/2 ML VIAL IVP ONE
[2021-03-28 10:02] VITALS: TEMP 98.1
[2021-03-28] MEDS ORDERED: MIDAZOLAM 2 MG/2 ML VIAL IVP ONE (10:23)
[2021-03-28] MEDS ORDERED: KETOROLAC 15 MG/ML 1 ML VIAL ONE (11:02)
[2021-03-28] MEDS ORDERED: PROPOFOL 10 MG/ML 20 ML VIAL IV ONE (11:02)
[2021-03-28] MEDS ORDERED: MIDAZOLAM 2 MG/2 ML VIAL ONE (11:02)
[2021-03-28] MEDS ORDERED: fentaNYL (PF) 50 MCG/ML 2 ML AMP ONE (11:02)
[2021-03-28] MEDS ORDERED: LIDOCAINE 1% INJ 10MG/ML (20 ML MDV) ONE (11:02)
[2021-03-28] MEDS ORDERED: HYDROmorphone (PF) 1 MG/ML ONE (11:02)
[2021-03-28] MEDS ORDERED: BUPIVACAINE (PF) 0.25% 30 ML VIAL INTRAARTIC ONE ×2 (11:06)
[2021-03-28] MEDS ORDERED: SODIUM CHLORIDE 0.9% 100 ML with ceFAZolin 1 GM IV ONE ×2 (11:07)
[2021-03-28] MEDS ORDERED: LACTATED RINGERS 1,000 ML IV ONE (11:40)
--- NOTE | 2021-03-28 12:05 | P.OP ---
Date of Procedure: 03/28/21 Preoperative Diagnosis: Internal derangement right knee Postoperative Diagnosis: 1. Tear lateral meniscus right knee 2. Grade 4 chondromalacia femoral sulcus right knee 3. Reactive synovitis medial, lateral and suprapatellar compartments right knee Procedure(s) Performed: 1. Arthroscopic partial lateral meniscectomy right knee 2. Arthroscopic chondroplasty femoral sulcus right knee 3. Arthroscopic microfracture femoral sulcus right knee 4. Arthroscopic partial synovectomy medial, lateral and suprapatellar compartments right knee Anesthesia: GETA, local Surgeon: Pranay Hurtado Estimated Blood Loss (ml): 7 Pathology: none sent Condition: stable Disposition: PACU Indications for Procedure: 40-year-old patient seen with right knee pain. We discussed options for treatment, she elected to proceed with arthroscopy. Operative Findings: See description of procedure Description of Procedure: Patient was taken to the operative suite. Patient underwent a general anesthetic by the department of anesthesia. Patient was given preoperative antibiotics. The right lower extremity was placed in a well-padded arthroscopic leg woods. The right leg was prepped and draped in the normal sterile orthopedic fashion. A lateral parapatellar and suprapatellar incision was made. Trochars were inserted. Arthroscopy was initiated. Suprapatellar pouch revealed diffuse thick reactive synovitis. The patellofemoral joint appeared to articulate congruently. There was grade 3/4 chondromalacia of the femoral sulcus with a large osteochondral flap tear present. The scope was guided into the medial gutter. No loose bodies or plica were identified. The scope was then guided into the medial compartment. A medial parapatellar incision was made. Trocar inserted followed by probe. The medial meniscus was probed and found to have some superficial fraying along the posterior horn but was otherwise intact with no significant tear. There were grade 1 chondromalacia changes of the medial compartment with no osteochondral tears. There was some thick reactive synovitis anteriorly. I introduced a motorized shaver and debrided out that area superficial fraying posterior horn meniscus and I performed a partial synovectomy decompressing thick reactive synovitis anteriorly. The shaver was removed. There was good decompression of the synovitis. Scope and probe were then guided into the intercondylar notch. C ruciates were identified, probed and found to be stable. The scope and probe were then guided into lateral compartment. There was a tear involving the midbody area lateral meniscus. There was a a tear in the residual posterior horn of the lateral meniscus. There was evidence of previous significant partial meniscectomy. There were grade 1 chondromalacia changes lateral compartment with no osteochondral tears. There was thick reactive synovitis anteriorly. I performed a partial lateral meniscectomy getting down to stable meniscal tissue. I performed a partial synovectomy decompressing the thick reactive synovitis. The residual meniscus was probed and found to be stable. There was good decompression of the synovitis. The scope was in guided back into the suprapatellar compartment. I introduced a motorized shaver into the super compartment. I performed a chondroplasty of the femoral sulcus getting down to stable osteochondral tissue. I performed a partial synovectomy decompr essing the thick reactive synovitis. The shaver was removed. There was good decompression of the synovitis. There was an area of grade 4 chondromalacia involving the femoral sulcus. I performed a microfracture to the area penetrating the bone with resultant bleeding at the microfracture site. I now took one more look on the entire knee, no residual debris. Instruments were now removed from the joint. The joint was infiltrated with .25% Marcaine. Steri- Strips were applied to the portal sites. Sterile dressings were applied. The patient was placed into a PALMER hose. No tourniquet was utilized. The patient was awakened, transferred to a bed and taken to recovery stable satisfactory condition.
[2021-03-28] MEDS: fentaNYL (PF) 50 MCG/ML 2 ML AMP IV PRN ×2 (12:06→12:22)
[2021-03-28] MEDS ORDERED: HYDROcodone/APAP 5-325MG 1 EACH TAB ONE (13:10)
[2021-03-28 13:36] VITALS: BP 144/79; PULSE 89; RESP 18
== END 2021-03-28 13:45 | disposition home or self-care (01) ==
LOC: OR 09:24
PROVIDERS: ATTEND Orthopaedic Surgery
DX: S83.281A Other tear of lateral meniscus, current injury, right knee, initial encounter (principal); M17.11 Unilateral primary osteoarthritis, right knee; E03.9 Hypothyroidism, unspecified
CPT/HCPCS: 29876; 29879; 29881; J2250; J0690; J2405; J2001; J3010; J1170; J1885; J2704

== ENCOUNTER → 2021-03-29 | Outpatient (CLI) | payer MEDICARE, OTHER ==
--- NOTE | 2021-03-30 11:10 | MM ---
Reason for exam: additional evaluation requested from prior study. Last mammogram was performed 2 years and 7 months ago. History: Family history of breast cancer in maternal grandmother at age 50. Took hormonal contraceptives for 10 years beginning at age 17. Physical Findings: Nurse did not find any significant physical abnormalities on exam. MG 3D Diag Mammo W/Cad ASHLEE Bilateral CC, MLO, spot compression MLO, and LM view(s) were taken. Spot compression CC view(s) were taken of the left breast. Prior study comparison: September 04, 2018, bilateral MG 3d diag mammo w/cad ASHLEE. There are scattered fibroglandular densities. Left anterior upper outer quadrant lobulated 1cm density at 12-1 o'clock persists on compression, ultrasound recommended. Right ovoid superior asymmetric density disperses on additional views. These results were verbally communicated with the patient and result sheet given to the patient on 03/29/21. ASSESSMENT: Incomplete: need additional imaging evaluation, BI-RAD 0 RECOMMENDATION: Ultrasound of both breasts. (right upper outer quadrant as ordered for previous skin lesion, left 12-1 o'clock)
--- NOTE | 2021-03-30 11:13 | USB ---
Reason for exam: additional evaluation requested from abnormal screening. History: Family history of breast cancer in maternal grandmother at age 50. Took hormonal contraceptives for 10 years beginning at age 17. US Breast Limited BILAT Technologist: Nadeen Espinal Right limited breast ultrasound including focal area of concern, retroareolar and axilla demonstrates a 0.7cm short axis lymph node at the axilla, prominent but nonenlarged. Left limited breast ultrasound including focal area of concern, retroareolar and axilla demonstrates a 0.9 x 0.7 x 0.5cm mixed lesion at 12 o'clock, corresponds well to the mammographic mass. Biopsy recommended. Right scanned 9-12 o'clock. Left scanned 12-1 o'clock. These results were verbally communicated with the patient and result sheet given to the patient on 03/29/21. ASSESSMENT: Suspicious, BI-RAD 4 RECOMMENDATION: Ultrasound core biopsy of the left breast. Called Dr. Perez's office with mammographic findings and has scheduled an appointment for the patient for 04/20/21 at 10:[address] Oh. Biopsy scheduled for 04/23/21 at 1:00. PRELIMINARY REPORT CALLED AND FAXED TO DR. OH ON 03/30/21.
== END | disposition home or self-care (01) ==
LOC: RADMAMWWP 13:02
PROVIDERS: ATTEND Internal Medicine
DX: N64.89 Other specified disorders of breast (principal); Z80.3 Family history of malignant neoplasm of breast
CPT/HCPCS: 77066; 76642; G0279; 77062

== ENCOUNTER → 2021-04-20 | Outpatient (CLI) | payer MEDICARE, OTHER ==
[2021-04-20 09:44] VITALS: BP 116/79; PULSE 66; RESP 16; TEMP 99.1
--- NOTE | 2021-04-20 10:41 | P.GSHP ---
History of Present Illness H&P Date: 04/20/21 Chief Complaint: Abnormal left breast mammogram and ultrasound Breana is a 40-year-old white female seen in consultation for Dr. Perez regarding mammographic and ultrasound abnormality in her left breast. She underwent a bilateral mammogram on which revealed a left anterior upper outer quadrant 1 cm lobulated density. An ultrasound was performed which confirmed this area to be a mixed lesion near 12:00 corresponding to the mammographic mass. Ultrasound core biopsy was recommended. She does not feel anything of concern in either breast. She does complain of pain in the lateral aspect of her left breast. It radiates through the lateral aspect of her breast. It is pulling in nature. It has been going on for about three weeks. It is positional and leaves as soon as she changes position. She has recently lost over 50 pounds, and her breast feel different, but no discrete masses she is concerned about. She states both her breasts feel like a bag of marbles at this time. She has had swollen bilateral axillary nodes in the past but has not had a ny surgery for these. She did have a ? cellulitis about one year ago, this was treated with antibiotics. Is not have any history of any trauma for breast. She has no history of any recent breast infection. The mammogram was done secondary to family history, and not an acute breast problem. Caffeine: 3/4 gallon tea/day nicotine: 1- 05/01 PPD for 30 years chocolate: rare uses Soy and Black Cohash/ estrovan Family History: maternal grandmother: breast cancer maternal uncle: colon cancer/ with mets. Hormonal History: menarche: 14 M2, breast fed: yes, age at first : 22 hysterectomy for endometriosis/ left ovaries was told has gone through menopause hormones: none BCP:used for 10 years off now for 10 years Surgical History: 1. Hysterectomy left ovaries 2. thyroidectomy total in [place] 3. gallbladder removed 4. 7 knee surgeries 5. glaucoma right eye surgery 6. two sinus surgeries Medical History: rheumatoid arthritis DJD 2 CVA lst 2017 3 TIA glaucoma heart disease HTN Social History: nicotine: 1 1/2 PPD for 30 years alcohol: stopped in August/ used to drink daily drugs: medical marijuana - Constitutional Constitutional: Reports sweats - EENT Eyes: bilateral as per HPI Ears: right: decreased hearing, bilateral: tinnitus Ears, nose, mouth and throat: Reports headache - Breasts Breasts: bilateral: as per HPI - Cardiovascular Cardiovascular: Reports shortness of breath - Respiratory Comment: COPD/smoker - Gastrointestinal Gastrointestinal: Reports constipation, Reports diarrhea, Denies abdominal pain, Denies nausea, Denies vomiting - Genitourinary (Female) Genitourinary: Reports kidney stones, Denies dysuria, Denies hematuria - Menstruation Menstruation: Reports post hysterectomy - Musculoskeletal Musculoskeletal: Reports as per HPI - Integumentary Integumentary: Reports as per HPI - Neurological Comment: history of CVA and TIA/ ? 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 - Psychiatric Psychiatric: Reports anxiety, Reports depression - Endocrine Endocrine: Reports fatigue, Reports weight change - Hematologic/Lymphatic Comment: none - Allergic/Immunologic Allergic/Immunologic: Reports as per HPI, Reports seasonal allergies Past Medical History Past Medical History: COPD, CVA/TIA, Eye Disorder, Fibromyalgia, GERD/Reflux, GI Bleed, Hearing Disorder / Deafness, Liver Disease, Memory Impairment, Musculoskeletal Disorder, Osteoarthritis (OA), Pneumonia, Rheumatoid Arthritis (RA), Supraventricular Tachycardia (SVT), Thyroid Disorder, Vascular Disorder Additional Past Medical History / Comment(s): Sinus prob, migraines, "3 TIA's, last 08/17, total of 2 CVA's, last 06/2016 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 Bruises easily. NVD severe, wgt loss currently-50lbs as of mar 2021 History of Any Multi-Drug Resistant Organisms: MRSA Date of last positivie culture/infection: 2004 MDRO Source:: right back of thigh Past Surgical History: Bladder Surgery, Cholecystectomy, Hysterectomy, Orthopedic Surgery, Tubal Ligation Additional Past Surgical History / Comment(s): Thyroid removed for benign tumor, right knee surgery X3, left knee surgery X1, rectal hernia repair, A&P repair, epidurals for pain. Past Anesthesia/Blood Transfusion Reactions: Previous Problems w/ Anesthesia Additional Past Anesthesia/Blood Transfusion Reaction / Comment(s): "Hx of vertigo, feels/acts scared, screaming, when comes out of anesthesia." Past Psychological History: Anxiety, Bipolar, PTSD Additional Psychological History / Comment(s): Has a problem with "dealing/having a lot of people around. Needs personal space". "High functioning autism." Smoking Status: Current every day smoker, Heavy tobacco smoker Past Alcohol Use History: Daily, Occasional Additional Past Alcohol Use History / Comment(s): Smoking: started 1994, 1 ppd. Alcohol use occ only now. Past Drug Use History: Marijuana Additional Drug Use History / Comment(s): Medical Marijuana q hs in past; now uses high CBD/low THC salve prn for pain. Aware no use 24 hrs prior to procedure. - Past Family History Mother Family Medical History: Cancer, Congestive Heart Failure (CHF), COPD, CVA/TIA Additional Family Medical History / Comment(s): "Pills & alcohol abuse, CVA x 4, lung cancer." Father History Unknown: Yes Family Medical History: No Reported History Additional Family Medical History / Comment(s): "Commited suicide in , so I really don't know." Medications and Allergies Home Medications Medication Instructions Recorded Confirmed Type Ipratropium/Albuterol Sulfate 2 puff INHALATION RT-QID PRN 07/22/16 04/20/21 History [Combivent Respimat Inhaler] Levothyroxine Sodium [Synthroid] 175 mcg PO QAM 11/09/18 04/20/21 History Diclofenac Sodium [Voltaren] 50 mg PO BID 12/25/20 04/20/21 History LORazepam [Ativan] 1 mg PO BID 12/25/20 04/20/21 History Soy Isofla/Blk Cohosh/Mag Bark 155 mg PO HS 12/25/20 04/20/21 History [Estroven 155 mg Capsule] traZODone HCL 100 mg PO HS 12/25/20 04/20/21 History Multivitamin/Iron/Folic Acid 1 each PO DAILY 04/20/21 04/20/21 History [Centrum Women Tablet] Allergies Allergy/AdvReac Type Severity Reaction Status Date / Time clarithromycin [From Biaxin] Allergy Swelling, Verified 04/20/21 09:44 Itching codeine AdvReac "hard to Verified 04/20/21 09:44 breathe" naproxen AdvReac "throws up Verified 04/20/21 09:44 blood" NSAIDS (Non-Steroidal AdvReac stomach Verified 04/20/21 09:44 Anti-Inflamma bleeding steriods Allergy Swelling, Uncoded 04/20/21 09:44 joints swollen & red, coulnts move Surgical - Exam Vital Signs Temp Pulse Resp BP Pulse Ox 99.1 F 66 16 116/79 97 04/20/21 09:40 04/20/21 09:40 04/20/21 09:40 04/20/21 09:40 04/20/21 09:40 BMI 24.2 - General moderate distress - Eyes normal ocular movement - ENT normal mucosa - Neck trachea midline - Respiratory normal respiratory effort, clear to auscultation - Cardiovascular Heart Sounds: normal: S1, S2 - Abdomen Abdomen: soft - Integumentary normal turgor - Neurologic no disoriented, no combative - Musculoskeletal normal gait - Psychiatric oriented to time, oriented to person, oriented to place, speech is normal, memory intact Breast Exam: BRA: 34C/she is a 36G but has lost weight and has lost weight in her breast inspection: Grade 3 ptosis Palpation: Right breast: Multi-positional exam fibrocystic changes no dominant masses or nodules of concern Right axilla: No adenopathy of concern Left breast: Multiple positional exam fibrocystic changes no dominant masses or notches of concern Left axilla: No adenopathy of concern Results Mammogram and ultrasound reviewed with Dr. Bird/lesion noted left breast at 12:00 which appears to be a mixed lesion for which biopsy is recommended Assessment and Plan Assessment: Impression: rheumatoid arthritis DJD 2 CVA lst 2017 3 TIA glaucoma heart disease HTN abnormal mammogram and ultrasound of the left breast breast pain Plan: 1. left breast ultrasound core biopsy 2. Encourage patient to stop caffeine and nicotine exposure 3. Follow-up after ultrasound core biopsy left breast Risk and benefits of ultrasound-guided core biopsy discussed with the patient. She understands and wishes to proceed. Time spent: 45 minutes reviewing radiographs, during physical examination, and counseling. CC: Dr. Perez
== END ==
LOC: WWCWWP 09:20
PROVIDERS: ATTEND Surgery
DX: N64.4 Mastodynia (principal); R92.8 Other abnormal and inconclusive findings on diagnostic imaging of breast; M06.9 Rheumatoid arthritis, unspecified; M19.90 Unspecified osteoarthritis, unspecified site; H40.9 Unspecified glaucoma; I10 Essential (primary) hypertension; F17.210 Nicotine dependence, cigarettes, uncomplicated; F31.9 Bipolar disorder, unspecified; F41.9 Anxiety disorder, unspecified; F43.10 Post-traumatic stress disorder, unspecified; Z79.51 Long term (current) use of inhaled steroids; Z86.73 Personal history of transient ischemic attack (TIA), and cerebral infarction without residual deficits; Z88.5 Allergy status to narcotic agent; Z88.6 Allergy status to analgesic agent; Z88.1 Allergy status to other antibiotic agents

== ENCOUNTER → 2021-04-23 | Day surgery (SDC) | payer MEDICARE, OTHER ==
[2021-04-23 12:16] VITALS: RESP 16
[2021-04-23 13:18] VITALS: BP 138/94; PULSE 93; TEMP 98.8
--- NOTE | 2021-04-23 13:29 | USB ---
EXAMINATION TYPE: US biopsy breast VAD LT DATE OF EXAM: 04/23/2021 CLINICAL HISTORY: R92.8 Abnormal Imaging. TECHNIQUE: Ultrasound guided core biopsy of left breast 12:00 breast. COMPARISON: NONE FINDINGS: The procedure of ultrasound guided core biopsy was explained to the patient. Benefits, alternatives, and risks were discussed. An informed consent was then obtained. The patient was placed in supine positioning for imaging and for the procedure. The overlying skin was prepped and draped in usual sterile fashion. Lidocaine buffered with bicarbonate was used as anesthetic into the skin and subcutaneous tissue up to area of concern in the left breast 12:00 breast Under ultrasound guidance, a 12-gauge vacuum assisted biopsy gun device was used to obtain 1 core sample. Following the first core sample the lesion was no longer visualized. Microclip was deployed. Post procedural mammogram demonstrates appropriate clip placement. The patient tolerated the procedure well without any immediate complication. The patient was kept in the radiology department for short stay after the procedure and then discharged home in stable condition. IMPRESSION: Successful, uncomplicated ultrasound guided core biopsy of area of concern in the left breast 12:00 breast, full pathology results to follow. Pathology Results: Benign LEFT BREAST, 12:00, CORE BIOPSY: Fibrocystic change with prominent cystically dilated ducts and apocrine metaplasia. Recommendation Follow up ultrasound of the left breast in 6 months. WANDAD
--- NOTE | 2021-04-23 13:32 | MM ---
Reason for exam: additional evaluation requested from abnormal screening. Last mammogram was performed 1 month ago. History: Family history of breast cancer in maternal grandmother at age 50. Took hormonal contraceptives for 10 years beginning at age 17. MG Diagnostic Mammo LT Wo CAD CC and LM view(s) were taken of the left breast. Prior study comparison: March 29, 2021, bilateral MG 3d diag mammo w/cad [facility]. September 04, 2018, bilateral MG 3d diag mammo w/cad [facility]. ASSESSMENT: Post procedure mammogram for marker placement RECOMMENDATION: Ultrasound of the left breast in 6 months. PENDING PATHOLOGY RESULTS.
== END ==
LOC: RADUSWWP 11:29
PROVIDERS: ATTEND Surgery
DX: N60.12 Diffuse cystic mastopathy of left breast (principal); N60.82 Other benign mammary dysplasias of left breast; R92.8 Other abnormal and inconclusive findings on diagnostic imaging of breast; Z88.6 Allergy status to analgesic agent; Z88.1 Allergy status to other antibiotic agents; Z88.5 Allergy status to narcotic agent; Z88.8 Allergy status to other drugs, medicaments and biological substances
CPT/HCPCS: 88305; 77065; 19083; A4648; J2001

== ENCOUNTER → 2021-05-03 | Outpatient (CLI) | payer MEDICARE, OTHER ==
[2021-05-03 11:21] VITALS: BP 119/80; PULSE 84; RESP 18; TEMP 98.8
--- NOTE | 2021-05-03 11:51 | P.PN ---
Subjective Progress Note Date: 05/03/21 Principal diagnosis: fibrocystic breast changes Breana is a 40 year old white female status post ultrasound core biopsy of the left breast on 04-23-21. Pathology was fibrocystic change. She tolerated the procedure without difficulty. The pain which she was complaining of on her last visit has resolved since the biopsy. Objective - Vital Signs Vital signs: Vital Signs Temp 98.8 F 05/03/21 11:18 Pulse 84 05/03/21 11:18 Resp 18 05/03/21 11:18 BP 119/80 05/03/21 11:18 Pulse Ox 100 05/03/21 11:18 Intake & Output 05/02/21 05/03/21 05/03/21 18:59 06:59 18:59 Weight 57.153 kg - Constitutional General appearance: Present: cooperative - EENT Eyes: Present: EOMI ENT: Present: hearing grossly normal - Neck Neck: Present: normal ROM - Respiratory Details: wheezing left lung base/ right base clear - Cardiovascular Heart sounds: normal: S1, S2 - Integumentary Integumentary Comment(s): Biopsy site left breast clean and dry - Musculoskeletal Musculoskeletal: Present: gait normal - Psychiatric Psychiatric: Present: A&O x's 3, appropriate affect, intact judgment & insight Assessment and Plan Assessment: Impression: 1. Bilateral fibrocystic breast changes/status post left breast core biopsy fibrocystic changes 2. Mastodynia resolved 3. Left lung base wheezing/nicotine use Plan: 1. Left breast mammogram and ultrasound in 6 months with physician exam at that time 2. Patient encouraged to stop smoking Cc: Dr. Peerz
== END ==
LOC: WWCWWP 10:29
PROVIDERS: ATTEND Surgery
DX: N60.11 Diffuse cystic mastopathy of right breast (principal); N60.12 Diffuse cystic mastopathy of left breast; R06.2 Wheezing; F17.200 Nicotine dependence, unspecified, uncomplicated; Z88.1 Allergy status to other antibiotic agents; Z88.5 Allergy status to narcotic agent; Z88.6 Allergy status to analgesic agent; Z88.8 Allergy status to other drugs, medicaments and biological substances

== ENCOUNTER → 2021-05-08 | Outpatient (CLI) | payer MEDICARE, OTHER ==
[2021-05-08 20:47] LABS: T4, Free (Free Thyroxine) 1.13 ng/dL (0.800-1.800)
== END | disposition home or self-care (01) ==
LOC: LABWHC1 12:25
PROVIDERS: ATTEND Internal Medicine
DX: E03.9 Hypothyroidism, unspecified (principal)
CPT/HCPCS: 36415; 84439; 84443; 84481

== ENCOUNTER 2021-05-25 12:18 | Emergency (ER) | payer MEDICARE, OTHER ==
[2021-05-25 12:51] VITALS: TEMP 98.8
--- NOTE | 2021-05-25 13:16 | XR ---
EXAMINATION TYPE: XR hand complete RT DATE OF EXAM: 05/25/2021 CLINICAL HISTORY: History of rheumatoid arthritis and prior boxer fractures presents with pain after injury worse in the third finger TECHNIQUE: Frontal, lateral and oblique images of the right hand are obtained. COMPARISON: None. FINDINGS: There is no acute fracture/dislocation evident in the right hand. Old healed fractures of the fifth metacarpal and probably of the fourth metacarpal noted. The joint spaces in the right hand appear within normal limits. Mild soft tissue swelling at the PIP joints. No suspicious bony erosive changes. IMPRESSION: There is no acute fracture or dislocation in the right hand.
--- NOTE | 2021-05-25 14:46 | ED ---
General Adult HPI - General Chief complaint: Extremity Injury, Upper Stated complaint: hand pain Time Seen by Provider: 05/25/21 14:37 Source: patient, RN notes reviewed, old records reviewed Mode of arrival: ambulatory Limitations: no limitations - History of Present Illness Initial comments: 40-year-old female presenting for evaluation of right middle finger injury. Patient believes that she may have injured her finger throwing the ball to her dog. She does not recall specific trauma. This is been hurting for the past several days, worse with range of motion. No fevers. She did notice some mild swelling but no erythema. Patient has been taking [id number] naproxen with minimal improvement. - Related Data Home Medications Medication Instructions Recorded Confirmed Ipratropium/Albuterol Sulfate 2 puff INHALATION RT-QID PRN 07/22/16 05/03/21 [Combivent Respimat Inhaler] Levothyroxine Sodium [Synthroid] 175 mcg PO QAM 11/09/18 05/03/21 Diclofenac Sodium [Voltaren] 50 mg PO BID 12/25/20 05/03/21 LORazepam [Ativan] 1 mg PO BID 12/25/20 05/03/21 Soy Isofla/Blk Cohosh/Mag Bark 155 mg PO HS 12/25/20 05/03/21 [Estroven 155 mg Capsule] traZODone HCL 100 mg PO HS 12/25/20 05/03/21 Multivitamin/Iron/Folic Acid 1 each PO DAILY 04/20/21 05/03/21 [Centrum Women Tablet] Previous Rx's Medication Instructions Recorded Naproxen 500 mg PO BID PRN 10 Days #20 05/25/21 tablet Allergies Allergy/AdvReac Type Severity Reaction Status Date / Time clarithromycin [From Biaxin] Allergy Swelling, Verified 05/25/21 12:51 Itching codeine AdvReac "hard to Verified 05/25/21 12:51 breathe" naproxen AdvReac "throws up Verified 05/25/21 12:51 blood" NSAIDS (Non-Steroidal AdvReac stomach Verified 05/25/21 12:51 Anti-Inflamma bleeding steriods Allergy Swelling, Uncoded 05/25/21 12:51 joints swollen & red, coulnts move Review of Systems ROS Statement: Those systems with pertinent positive or pertinent negative responses have been documented in the HPI. ROS Other: All systems not noted in ROS Statement are negative. 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 Bruises easily. NVD severe, wgt loss currently-50lbs as of mar 2021 History of Any Multi-Drug Resistant Organisms: MRSA Date of last positivie culture/infection: 2004 MDRO Source:: right back of thigh Past Surgical History: Bladder Surgery, Cholecystectomy, Hysterectomy, Orthopedic Surgery, Tubal Ligation Additional Past Surgical History / Comment(s): Thyroid removed for benign tumor, right knee surgery x5, left knee surgery X1, rectal hernia repair, A&P repair, epidurals for pain. Past Anesthesia/Blood Transfusion Reactions: Previous Problems w/ Anesthesia Additional Past Anesthesia/Blood Transfusion Reaction / Comment(s): "Hx of vertigo, feels/acts scared, screaming, when comes out of anesthesia." Past Psychological History: Anxiety, Bipolar, PTSD Smoking Status: Current every day smoker, Heavy tobacco smoker Past Alcohol Use History: Occasional Past Drug Use History: Marijuana - Past Family History Mother Family Medical History: Cancer, Congestive Heart Failure (CHF), COPD, CVA/TIA Additional Family Medical History / Comment(s): "Pills & alcohol abuse, CVA x 4, lung cancer." Father History Unknown: Yes Family Medical History: No Reported History Additional Family Medical History / Comment(s): "Commited suicide in 88, so I really don't know." General Exam Limitations: no limitations General appearance: alert, in no apparent distress Head exam: Present: atraumatic, normocephalic Eye exam: Present: normal appearance, PERRL ENT exam: Present: normal exam Neck exam: Present: normal inspection. Absent: tenderness, meningismus Respiratory exam: Present: normal lung sounds bilaterally. Absent: respiratory distress, wheezes Cardiovascular Exam: Present: regular rate, normal rhythm GI/Abdominal exam: Present: soft. Absent: distended, tenderness Extremities exam: Present: other (Examination of the right hand, normal cap refill, 2+ radial pulse, range of motion is limited at the third digit predominantly flexion. There is no external signs of infection, no erythema, no significant swelling.) Course Vital Signs 05/25/21 12:48 Temperature 98.8 F Pulse Rate 95 Respiratory 20 Rate Blood Pressure 141/89 O2 Sat by Pulse 97 Oximetry Medical Decision Making - Medical Decision Making 32-year-old female with injury to the right middle finger. X-rays are performed these are negative for fracture dislocation. On exam she likely has a tendinitis without signs of infection. She is prescribed naproxen at her request. She will follow-up with orthopedics. She is given strict return parameters including watching for signs of infection. Disposition Clinical Impression: Extensor tendinitis of hand Disposition: HOME SELF-CARE Condition: Good Instructions (If sedation given, give patient instructions): Tendinitis (ED) Prescriptions: Naproxen 500 mg PO BID PRN 10 Days #20 tablet PRN Reason: Pain Is patient prescribed a controlled substance at d/c from ED?: No Referrals: Bridget Perez MD [Primary Care Provider] - 1-2 days Pranay Hurtado DO [Doctor of Osteopathic Medicine] - 1-2 days Time of Disposition: 14:44
[2021-05-25 14:48] VITALS: BP 128/86; PULSE 89; RESP 18
== END 2021-05-25 14:53 | disposition home or self-care (01) ==
LOC: EC 12:18
DX: M77.8 Other enthesopathies, not elsewhere classified (principal); J44.9 Chronic obstructive pulmonary disease, unspecified; K21.9 Gastro-esophageal reflux disease without esophagitis; M79.7 Fibromyalgia; M06.9 Rheumatoid arthritis, unspecified; F17.200 Nicotine dependence, unspecified, uncomplicated; F12.90 Cannabis use, unspecified, uncomplicated; Z79.890 Hormone replacement therapy; Z79.899 Other long term (current) drug therapy; X58.XXXA Exposure to other specified factors, initial encounter
CPT/HCPCS: 99283

== ENCOUNTER 2021-06-26 10:26 | Emergency (ER) | payer MEDICARE, OTHER ==
[2021-06-26 10:32] VITALS: BP 127/87; PULSE 79; RESP 18; TEMP 98.8
[2021-06-26] MEDS ORDERED: SODIUM CHLORIDE 0.9% 1,000 ML IV STA (10:54)
[2021-06-26] MEDS ORDERED: MECLIZINE 12.5 MG TAB PO STA (10:54)
[2021-06-26] MEDS ORDERED: METOCLOPRAMIDE 5 MG/ML 2 ML VIAL IVP STA (10:54)
--- NOTE | 2021-06-26 10:59 | ED ---
General Adult HPI - General Chief complaint: Dizziness Stated complaint: Dizziness and vomiting Time Seen by Provider: 06/26/21 10:45 Source: patient, RN notes reviewed Mode of arrival: ambulatory Limitations: no limitations - History of Present Illness Initial comments: Patient is a pleasant 41-year-old female presenting to the emergency Department with complaints of dizziness and vomiting. Onset of symptoms was close to week ago. Symptoms are intermittent. Patient usually has episodes of spinning followed by emesis. This occurs anywhere between 1 and 7 times daily. Symptoms worsen with head movement and upright position. No history of chronic similar symptoms previously. Symptoms are mild at this time. Patient has been trying to drink more fluids. Patient only has vomiting associated with dizziness. No constipation or diarrhea. No fever. No abdominal pain. - Related Data Home Medications Medication Instructions Recorded Confirmed Diclofenac Sodium [Voltaren] 50 mg PO BID 12/25/20 06/26/21 LORazepam [Ativan] 0.5 mg PO BID PRN 12/25/20 06/26/21 traZODone HCL 50 mg PO HS 12/25/20 06/26/21 Fluconazole 50mg 50 mg PO DAILY PRN 06/26/21 06/26/21 Levothyroxine Sodium [Synthroid] 175 mcg PO HS 06/26/21 06/26/21 Linaclotide [Linzess] 145 mg PO DAILY PRN 06/26/21 06/26/21 Previous Rx's Medication Instructions Recorded Metoclopramide HCl [Reglan] 10 mg PO Q6HR PRN #15 tablet 06/26/21 Allergies Allergy/AdvReac Type Severity Reaction Status Date / Time clarithromycin [From Biaxin] Allergy Swelling, Verified 06/26/21 12:01 Itching codeine AdvReac "hard to Verified 06/26/21 12:01 breathe" naproxen AdvReac "throws up Verified 06/26/21 12:01 blood" NSAIDS (Non-Steroidal AdvReac stomach Verified 06/26/21 12:01 Anti-Inflamma bleeding steriods Allergy Swelling, Uncoded 05/25/21 12:51 joints swollen & red, coulnts move Review of Systems ROS Statement: Those systems with pertinent positive or pertinent negative responses have been documented in the HPI. ROS Other: All systems not noted in ROS Statement are negative. Constitutional: Denies: fever Eyes: Denies: eye pain ENT: Denies: ear pain Respiratory: Denies: cough Cardiovascular: Denies: chest pain Endocrine: Denies: fatigue Gastrointestinal: Denies: abdominal pain Genitourinary: Denies: dysuria Musculoskeletal: Denies: back pain Skin: Denies: rash Neurological: Reports: as per HPI, vertigo. 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 Bruises easily. NVD severe, wgt loss currently-50lbs as of mar 2021 History of Any Multi-Drug Resistant Organisms: MRSA Date of last positivie culture/infection: 2004 MDRO Source:: right back of thigh Past Surgical History: Bladder Surgery, Cholecystectomy, Hysterectomy, Orthopedic Surgery, Tubal Ligation Additional Past Surgical History / Comment(s): Thyroid removed for benign tumor, right knee surgery x5, left knee surgery X1, rectal hernia repair, A&P repair, epidurals for pain. Past Anesthesia/Blood Transfusion Reactions: Previous Problems w/ Anesthesia Additional Past Anesthesia/Blood Transfusion Reaction / Comment(s): "Hx of vertigo, feels/acts scared, screaming, when comes out of anesthesia." Past Psychological History: Anxiety, Bipolar, PTSD Smoking Status: Current every day smoker, Heavy tobacco smoker Past Alcohol Use History: Occasional Past Drug Use History: Marijuana - Past Family History Mother Family Medical History: Cancer, Congestive Heart Failure (CHF), COPD, CVA/TIA Additional Family Medical History / Comment(s): "Pills & alcohol abuse, CVA x 4, lung cancer." Father History Unknown: Yes Family Medical History: No Reported History Additional Family Medical History / Comment(s): "Commited suicide in 88, so I really don't know." General Exam Limitations: no limitations General appearance: alert, in no apparent distress Head exam: Present: atraumatic, normocephalic Eye exam: Present: normal appearance, PERRL, EOMI. Absent: nystagmus ENT exam: Present: normal oropharynx Neck exam: Present: normal inspection Respiratory exam: Present: normal lung sounds bilaterally Cardiovascular Exam: Present: regular rate, normal rhythm GI/Abdominal exam: Present: soft. Absent: tenderness Extremities exam: Present: normal inspection. Absent: pedal edema, calf tenderness Neurological exam: Present: alert, oriented X3, CN II-XII intact. Absent: motor sensory deficit Expanded Neurological exam: Present: protecting the airway Patient oriented to: Present: person, place, time Speech: Present: fluid speech Cranial nerves: EOM's Intact: Normal Motor strength exam: RUE: 5, LUE: 5, RLE: 5, LLE: 5 Eye Response: (4) open spontaneously Motor Response: (6) obeys commands Verbal Response: (5) oriented Psychiatric exam: Present: normal affect, normal mood Skin exam: Present: normal color Course Vital Signs 06/26/21 10:28 Temperature 98.8 F Pulse Rate 79 Respiratory 18 Rate Blood Pressure 127/87 O2 Sat by Pulse 100 Oximetry Medical Decision Making - Medical Decision Making Patient reevaluated and feeling better following medications. Patient updated on results. Patient is comfortable with discharge home. - Lab Data Result diagrams: 06/26/21 11:54 06/26/21 11:54 Lab Results 06/26/21 06/26/21 06/26/21 Range/Units 11:54 11:54 11:54 WBC 5.9 (3.8-10.6) k/uL RBC 4.05 (3.80-5.40) m/uL Hgb 13.7 (11.4-16.0) gm/dL Hct 40.6 (34.0-46.0) % MCV 100.2 H (80.0-100.0) fL MCH 33.7 (25.0-35.0) pg MCHC 33.6 (31.0-37.0) g/dL RDW 12.7 (11.5-15.5) % Plt Count 297 (150-450) k/uL MPV 8.1 Neutrophils % 59 % Lymphocytes % 32 % Monocytes % 6 % Eosinophils % 1 % Basophils % 1 % Neutrophils # 3.5 (1.3-7.7) k/uL Lymphocytes # 1.9 (1.0-4.8) k/uL Monocytes # 0.4 (0-1.0) k/uL Eosinophils # 0.1 (0-0.7) k/uL Basophils # 0.0 (0-0.2) k/uL PT 10.4 (9.0-12.0) sec INR 1.0 (<1.2) APTT 24.9 (22.0-30.0) sec Sodium 140 (137-145) mmol/L Potassium 3.8 (3.5-5.1) mmol/L Chloride 105 (98-107) mmol/L Carbon Dioxide 28 (22-30) mmol/L Anion Gap 7 mmol/L BUN 10 (7-17) mg/dL Creatinine 0.62 (0.52-1.04) mg/dL Est GFR (CKD-EPI)AfAm >90 (>60 ml/min/1.73 sqM) Est GFR (CKD-EPI)NonAf >90 (>60 ml/min/1.73 sqM) Glucose 82 (74-99) mg/dL Calcium 9.5 (8.4-10.2) mg/dL Total Bilirubin 0.3 (0.2-1.3) mg/dL AST 27 (14-36) U/L ALT 27 (4-34) U/L Alkaline Phosphatase 49 (38-126) U/L Total Protein 6.8 (6.3-8.2) g/dL Albumin 4.2 (3.5-5.0) g/dL - Radiology Data Radiology results: report reviewed (Computed tomography scan of the brain as well as CTA reveals no acute abnormality) Disposition Clinical Impression: Vertigo Disposition: HOME SELF-CARE Condition: Stable Instructions (If sedation given, give patient instructions): Dizziness (ED) Additional Instructions: [id number] Antivert as needed. Prescription for nausea medication sent to pharmacy. Please follow-up with primary care physician in the next couple days for recheck. Return for increased dizziness, uncontrolled vomiting, weakness or confusion, worsening symptoms or other concerns. Prescriptions: Metoclopramide HCl [Reglan] 10 mg PO Q6HR PRN #15 tablet PRN Reason: Nausea Is patient prescribed a controlled substance at d/c from ED?: No Referrals: Bridget Perez MD [Primary Care Provider] - 1-2 days Time of Disposition: 13:43
[2021-06-26 12:12] LABS: Basophils % (A) 1 %; Eosinophils # (A) 0.1 k/uL (0-0.7); Eosinophils % (A) 1 %; HCT 40.6 % (34.0-46.0); HGB 13.7 gm/dL (11.4-16.0); Lymphocytes # (A) 1.9 k/uL (1.0-4.8); Lymphocytes % (A) 32 %; MCH 33.7 pg (25.0-35.0); MCHC 33.6 g/dL (31.0-37.0); MCV 100.2 fL (80.0-100.0); Mean Platelet Volume 8.1; Monocytes # (A) 0.4 k/uL (0-1.0); Monocytes % (A) 6 %; Neutrophils # (A) 3.5 k/uL (1.3-7.7); Neutrophils % (A) 59 %; Platelet Count 297 k/uL (150-450); RBC 4.05 m/uL (3.80-5.40); RDW 12.7 % (11.5-15.5); WBC 5.9 k/uL (3.8-10.6)
[2021-06-26 12:40] LABS: ALT 27 U/L (4-34); AST 27 U/L (14-36); African American GFR (CKD) >90 (>60 ml/min/1.73 sqM); Albumin 4.2 g/dL (3.5-5.0); Alkaline Phosphatase 49 U/L (38-126); Anion Gap 7 mmol/L; Blood Urea Nitrogen 10 mg/dL (7-17); Calcium 9.5 mg/dL (8.4-10.2); Carbon Dioxide 28 mmol/L (22-30); Chloride 105 mmol/L (98-107); Glucose 82 mg/dL (74-99); Non-African American GFR(CKD) >90 (>60 ml/min/1.73 sqM); Potassium 3.8 mmol/L (3.5-5.1); Sodium 140 mmol/L (137-145); Total Bilirubin 0.3 mg/dL (0.2-1.3); Total Protein 6.8 g/dL (6.3-8.2)
[2021-06-26 12:49] LABS: Partial Thromboplastin Time 24.9 sec (22.0-30.0); Prothrombin Time 10.4 sec (9.0-12.0)
--- NOTE | 2021-06-26 12:55 | CT ---
EXAMINATION TYPE: CT brain wo con DATE OF EXAM: 06/26/2021 COMPARISON: 04/05/2020 HISTORY: dizziness CT DLP: [address] of the brain was performed. The ventricles, basal cisterns and sulci overlying the cerebral convexities demonstrate a normal appe arance. There is no evidence for intracranial hemorrhage or sulcal effacement. No mass effects are seen. Osseous calvarium is intact. If symptoms persist consider MRI as clinically warranted. IMPRESSION: 1. No acute intracranial process is seen at this time.
--- NOTE | 2021-06-26 12:56 | CT ---
EXAMINATION TYPE: CT angio head neck DATE OF EXAM: 06/26/2021 COMPARISON: None HISTORY: dizziness CT DLP: 340.5 mGycm CONTRAST: Performed with IV Contrast, patient injected with 65 mL of Isovue 370. Combination Contrast CTA cervical carotids and [place] CTA cervical carotids with 3-D recons truction Contrast CTA of the cervical carotids was performed 3-D reconstruction imaging obtained at a separate workstation. Right carotid system: Mild plaque is seen of the right common carotid artery. There is mild plaque a lso noted at the carotid bulb and proximal ICA. No significant diameter reduction. ECA is patent. Right vertebral artery appears unremarkable. Left carotid system: Mild plaque is seen of the left common carotid artery. There is mild plaque als o noted at the carotid bulb and proximal ICA. No significant diameter reduction. ECA is patent. Lef t vertebral artery appears unremarkable. IMPRESSION: 1. No significant diameter reduction to account for the patient's symptoms. CTA [place] with 3-D reconstruction Contrast CTA of the [place] was performed 3-D reconstruction imaging obtained at a separate workstation. Vertebrobasilar system as well as intracranial portions of the internal carotid arteries and their ma nelly tributaries are patent. I do not see evidence for sizable aneurysm or vascular malformation. Pl ease note MRI provides greater sensitivity and specificity. Visualized brain appears grossly unremar kable. IMPRESSION: 1. No significant abnormality. NASCET criteria was used in interpretation of this exam?
== END 2021-06-26 14:41 | disposition home or self-care (01) ==
LOC: EC 10:26
DX: R42 Dizziness and giddiness (principal); J44.9 Chronic obstructive pulmonary disease, unspecified; M79.7 Fibromyalgia; K21.9 Gastro-esophageal reflux disease without esophagitis; M19.90 Unspecified osteoarthritis, unspecified site; E07.9 Disorder of thyroid, unspecified; F41.9 Anxiety disorder, unspecified; F31.9 Bipolar disorder, unspecified; F43.12 Post-traumatic stress disorder, chronic; F17.200 Nicotine dependence, unspecified, uncomplicated; F12.90 Cannabis use, unspecified, uncomplicated; Z88.1 Allergy status to other antibiotic agents; Z88.5 Allergy status to narcotic agent; Z86.73 Personal history of transient ischemic attack (TIA), and cerebral infarction without residual deficits; Z90.49 Acquired absence of other specified parts of digestive tract; Z90.710 Acquired absence of both cervix and uterus; Z98.51 Tubal ligation status
CPT/HCPCS: 99284 ×2; 96374 ×2; 96361 ×2; 36415; 80053; 85025; 85610; 85730; 70496; 70450; 70498; J2765; Q9967

== ENCOUNTER → 2021-11-14 | Outpatient (CLI) | payer MEDICARE, OTHER ==
--- NOTE | 2021-11-14 15:41 | MM ---
Reason for Exam: Follow-up at short interval from prior study. Last screening mammogram was performed 8 month(s) ago. Patient History: Menarche at age 14. First Full-Term at age 22. Hysterectomy at age 35. Hormonal Contraceptives for 10 years from age 17 until age 27. 04/23/2021, Benign Core Biopsy on the left side. Maternal grandmother had breast cancer, age 50. Risk Values: Areli 5 year model risk: 0.7%. NCI Lifetime model risk: 11.1%. Film Views: Left CC views were taken. Left MLO views were taken. Prior Study Comparison: 09/04/2018 Bilateral Diagnostic Mammogram, [facility]. 03/29/2021 Bilateral Diagnostic Mammogram, [facility]. 04/23/2021 Left Diagnostic Mammogram, [facility]. Tissue Density: Left: The breast tissue is heterogeneously dense. This may lower the sensitivity of mammography. Findings: Mammogram There is a core marker within the left breast. No suspicious spiculated or lobular masses or clusters of microcalcifications or architectural distortion, or other secondary signs of malignancy are radiographically apparent. Findings: Breast Ultrasound No suspicious spiculated or lobular masses are evident. Overall Assessment: Benign, BI-RAD 2 Assessment: MG 3D diag mammo w/cad LT - Left: Benign, BI-RAD 2. US breast LT - Left: Negative, BI-RAD 1. Management: Screening Mammogram of both breasts in 4 months. A clinical breast exam by your physician is recommended on an annual basis and results should be correlated with mammographic findings. Results were given to the patient verbally at the time of exam.
== END | disposition home or self-care (01) ==
LOC: RADMAMWWP 14:02
PROVIDERS: ATTEND Surgery
DX: R92.8 Other abnormal and inconclusive findings on diagnostic imaging of breast (principal); Z80.3 Family history of malignant neoplasm of breast
CPT/HCPCS: 77065; 76641; G0279; 77061

== ENCOUNTER → 2021-11-29 | Outpatient (CLI) | payer MEDICARE, OTHER ==
[2021-11-29 22:28] LABS: Basophils # (A) 0.07 X 10*3/uL (0.00-0.10); Basophils % (A) 0.7 %; Eosinophils # (A) 0.13 X 10*3/uL (0.04-0.35); Eosinophils % (A) 1.4 %; HCT 41.3 % (37.2-46.3); Immature Grans, Automated 0.2 %; Lymphocytes # (A) 2.76 X 10*3/uL (0.90-5.00); Lymphocytes % (A) 29.4 %; MCH 33.1 pg (27.0-32.0); MCHC 33.9 g/dL (32.0-37.0); MCV 97.6 fL (80.0-97.0); Mean Platelet Volume 9.6 fL (9.5-12.2); Monocytes # (A) 0.76 X 10*3/uL (0.20-1.00); Monocytes % (A) 8.1 %; NRBC Per 100 WBC 0 /100 WBCS (0.0-0.0); Neutrophils # (A) 5.65 X 10*3/uL (1.80-7.70); Neutrophils % (A) 60.2 %; Platelet Count 335 X 10*3/uL (140-440); RBC 4.23 X 10*6/uL (4.10-5.20); RDW 13.1 % (11.5-14.5); WBC 9.39 X 10*3/uL (4.50-10.00)
== END | disposition home or self-care (01) ==
LOC: LABPAT 16:02
PROVIDERS: ATTEND Surgery
DX: Z01.812 Encounter for preprocedural laboratory examination (principal); K43.0 Incisional hernia with obstruction, without gangrene
CPT/HCPCS: 85025

== ENCOUNTER 2021-12-04 05:49 | Day surgery (SDC) | payer MEDICARE, OTHER ==
[~2021-12-04 05:49] MED LIST changes: +ACETAMINOPHEN TAB 500 MG TAB PO PRN; +HEPARIN SODIUM,PORCINE/PF 5,000 UNIT/0.5 ML SYRINGE SQ PRN; -LACTATED RINGERS 1,000 ML IV SCH; -LIDOCAINE 1% (10MG/ML) FOR IV START INTRADERMA PRN; -ONDANSETRON 4 MG/2 ML VIAL IVP ONE
[2021-12-04] MEDS ORDERED: DEXAMETHASONE SOD PHOSPHATE 4 MG/ML 1 ML VIAL IV ONE (05:56)
[2021-12-04] MEDS ORDERED: ONDANSETRON 4 MG/2 ML VIAL IVP ONE (05:56)
[2021-12-04] MEDS ORDERED: LACTATED RINGERS 1,000 ML IV SCH (05:56)
[2021-12-04] MEDS ORDERED: SCOPOLAMINE 1 MG/72 HR PATCH TRANSDERM ONE (05:56)
[2021-12-04] MEDS ORDERED: LIDOCAINE 1% (10MG/ML) FOR IV START INTRADERMA PRN (05:56)
[2021-12-04 06:42] LABS: Glucose,Whole Blood 101 mg/dL (75-99)
[2021-12-04] MEDS ORDERED: fentaNYL (PF) 50 MCG/ML 2 ML AMP IV PRN (07:00)
[2021-12-04] MEDS ORDERED: MIDAZOLAM 2 MG/2 ML VIAL IV ONE (07:07)
[2021-12-04] MEDS ORDERED: fentaNYL (PF) 50 MCG/ML 2 ML AMP IVP ONE (07:07)
[2021-12-04] MEDS ORDERED: NEOSTIGMINE 1 MG/ML 10 ML VIAL ONE (07:50)
[2021-12-04] MEDS ORDERED: ROPIVACAINE 5 MG/ML 30 ML VIAL ONE (07:50)
[2021-12-04] MEDS ORDERED: PROPOFOL 10 MG/ML 20 ML VIAL IV ONE (07:50)
[2021-12-04] MEDS ORDERED: ePHEDrine 50 MG/ML 1 ML VIAL ONE (07:50)
[2021-12-04] MEDS ORDERED: GLYCOPYRROLATE 0.2 MG/ML 2 ML VIAL ONE (07:50)
[2021-12-04] MEDS ORDERED: HYDROmorphone (PF) 1 MG/ML ONE (07:50)
[2021-12-04] MEDS ORDERED: MIDAZOLAM 2 MG/2 ML VIAL ONE (07:50)
[2021-12-04] MEDS ORDERED: SUCCINYLCHOLINE CHLORIDE 100 MG/5 ML SYR IV ONE (07:50)
[2021-12-04] MEDS ORDERED: LIDOCAINE 2% INJ 20 MG/ML (2 ML VIAL) ONE (07:50)
[2021-12-04] MEDS ORDERED: fentaNYL (PF) 50 MCG/ML 2 ML AMP ONE (07:50)
[2021-12-04] MEDS ORDERED: ROCURONIUM 10 MG/ML (5 ML VIAL) IV ONE (07:50)
[2021-12-04] MEDS ORDERED: KETAMINE 10 MG/ML 20 ML VIAL ONE (07:50)
[2021-12-04] MEDS ORDERED: SODIUM CHLORIDE 0.9% (PF) 10 ML VIAL ONE (07:50)
[2021-12-04] MEDS ORDERED: BUPIVACAIN-EPI 0.25%-1:200,000 30 ML VIAL SQ ONE ×2 (08:19→08:39)
[2021-12-04] MEDS ORDERED: LACTATED RINGERS 1,000 ML IV ONE (08:49)
--- NOTE | 2021-12-04 09:15 | P.GSHP ---
History of Present Illness H&P Date: 12/04/21 Chief Complaint: Ventral hernia Is a 32-year-old female is A ventral hernia just above her umbilicus. The patient has intermittent incarceration her ventral hernia. It isn't causing her pain. Past Medical History Past Medical History: COPD, CVA/TIA, Eye Disorder, Fibromyalgia, GERD/Reflux, GI Bleed, Hearing Disorder / Deafness, Hypertension, Liver Disease, Memory Impairment, Osteoarthritis (OA), Pneumonia, Rheumatoid Arthritis (RA), Supraventricular Tachycardia (SVT), Thyroid Disorder, Vascular Disorder Additional Past Medical History / Comment(s): Sinus prob, migraines, "3 TIA's, last 08/17, total of 2 CVA's, last 06/2016 CVA 2013 - traumatic brain injury," left sided weakness, hearing loss Rt ear. 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 Bruises easily. History of Any Multi-Drug Resistant Organisms: MRSA Date of last positivie culture/infection: 2004 MDRO Source:: right back of thigh Past Surgical History: Bladder Surgery, Cholecystectomy, Hysterectomy, Orthopedic Surgery, Tubal Ligation Additional Past Surgical History / Comment(s): Thyroid removed for benign tumor, right knee surgery x7, left knee surgery X1, RECTOCELE REPAIR repair, A&P repair, epidurals for pain. Past Anesthesia/Blood Transfusion Reactions: Previous Problems w/ Anesthesia Additional Past Anesthesia/Blood Transfusion Reaction / Comment(s): "Hx of vertigo, feels/OR acts scared, screaming, when comes out of anesthesia." Smoking Status: Current every day smoker - Past Family History Mother Family Medical History: Cancer, Congestive Heart Failure (CHF), COPD, CVA/TIA Additional Family Medical History / Comment(s): "Pills & alcohol abuse, CVA x 4, lung cancer." BREAST AND OVARIAN Father History Unknown: Yes Family Medical History: No Reported History Additional Family Medical History / Comment(s): "Commited suicide in 88, so I really don't know." Medications and Allergies Home Medications Medication Instructions Recorded Confirmed Type Diclofenac Sodium [Voltaren] 50 mg PO HS 12/25/20 12/03/21 History LORazepam [Ativan] 0.5 mg PO BID PRN 12/25/20 12/03/21 History traZODone HCL 50 mg PO HS 12/25/20 12/03/21 History Fluconazole 50mg 50 mg PO DAILY PRN 06/26/21 12/03/21 History Levothyroxine Sodium [Synthroid] 200 mcg PO HS 06/26/21 12/03/21 History Metoclopramide HCl [Reglan] 10 mg PO Q6HR PRN #15 tablet 06/26/21 12/03/21 Rx Ipratropium/Albuterol Sulfate 1 puff INHALATION PRN 12/04/21 History [Combivent Respimat Inhaler] Allergies Allergy/AdvReac Type Severity Reaction Status Date / Time clarithromycin [From Biaxin] Allergy Swelling, Verified 12/03/21 08:23 Itching codeine AdvReac "hard to Verified 12/03/21 08:23 breathe" naproxen AdvReac "throws up Verified 12/03/21 08:23 blood" NSAIDS (Non-Steroidal AdvReac stomach Verified 12/03/21 08:23 Anti-Inflamma bleeding steriods Allergy Swelling, Uncoded 12/03/21 08:23 joints swollen & red, Surgical - Exam Vital Signs Temp Pulse Resp BP Pulse Ox 97 F L 88 20 115/68 99 12/04/21 06:35 12/04/21 06:35 12/04/21 06:35 12/04/21 06:35 12/04/21 06:35 - General well developed, well nourished, no distress - Eyes PERRL - ENT normal pinna - Neck no masses - Respiratory normal expansion - Cardiovascular Rhythm: regular - Abdomen 2 cm ventral hernia located above the umbilicus Abdomen: soft, non tender Results - Labs Abnormal Lab Results - Last 24 Hours (Table) 12/04/21 Range/Units 06:33 POC Glucose (mg/dL) 101 H (75-99) mg/dL Assessment and Plan Assessment: Antral hernia. We'll perform laparoscopic robotic-assisted repair.
[2021-12-04] MEDS ORDERED: HYDROmorphone 0.5 MG/0.5 ML SYRINGE IVP ONE ×2 (09:16→09:41)
--- NOTE | 2021-12-04 09:18 | P.OP ---
Date of Procedure: 12/04/21 Preoperative Diagnosis: Ventral hernia Postoperative Diagnosis: Ventral hernia Procedure(s) Performed: Laparoscopic robotic-assisted repair of ventral hernia Anesthesia: TAYO Surgeon: Gerardo Rios Estimated Blood Loss (ml): 5 Pathology: none sent Condition: stable Disposition: PACU Description of Procedure: MThe patient was placed on the operating table in the supine position. He received general anesthesia. His abdomen was prepped and draped usual fashion. Using a 5 mm optical trocar under direct visualization the peritoneal cavity was entered in the left upper quadrant. The abdomen was then insufflated. The laparoscope was placed back into the perineal cavity. Next a 8 mm robotic trocar was placed in the left lower quadrant and a 12 mm robotic trocar was placed in the left lateral position. The original 5 mm trocar was exchanged for a 8 mm robotic trocar. The patient's placed in the left side up position. And the patient was docked to the robot. The ventral hernia was visualized. Using hook cautery the peritoneum over the incisional hernia was excised. The fascial opening was repaired using 0V LOC suture. Next a piece of 11 cm round ventral light ST mesh was placed into the. Cavity and secured with 2 OV lock suture. The patient was undocked the robot. A four-quadrant tap block was then performed using 1% Xylocaine. The needles were retrieved. The fascia of the 12 mm trocar site was closed with 0 Ethibond suture. Skin was closed interrupted 3-0 Monocryl suture. Dermabond dressings was applied. Patient tolerated procedure well and was sent to recovery room stable condition.
[2021-12-04 09:28] VITALS: TEMP 98.1
[2021-12-04 09:47] VITALS: RESP 16
--- NOTE | 2021-12-04 10:02 | P.ANPRN ---
Procedure Note - Anesthesia - Nerve Block Performed Bilateral Rectus Abdominis Time Out Performed: Yes (07:06) Date of Procedure: 12/04/21 Procedure Start Time: : Procedure Stop Time: :16 Location of Patient: PreOp Indication: Acute Post-Operative Pain, Requested by Surgeon (Dr Rios) Sedation Type: Sedate with meaningful contact maintained Preparation: Sterile Prep Position: Supine Catheter: None Needle Types: Pajunk Needle Gauge: 21 Ultrasound used to visualize needle placement: Yes Ultrasound used to observe medication spread: Yes Injectate: 0.5% Ropivacaine (see comment for volume) (15cc + 10 cc PF Normal saline each side) Blood Aspirated: No Pain Paresthesia on Injection Noted: No Resistance on Injection: Normal Image Stored and Saved: Yes Events: Uneventful and Well Tolerated
[2021-12-04 10:40] VITALS: BP 121/79; PULSE 61
== END 2021-12-04 11:08 | disposition home or self-care (01) ==
LOC: OR 05:49
PROVIDERS: ATTEND Surgery
DX: K43.9 Ventral hernia without obstruction or gangrene (principal); J44.9 Chronic obstructive pulmonary disease, unspecified; Z86.73 Personal history of transient ischemic attack (TIA), and cerebral infarction without residual deficits; M79.7 Fibromyalgia; K21.9 Gastro-esophageal reflux disease without esophagitis; H91.90 Unspecified hearing loss, unspecified ear; I10 Essential (primary) hypertension; Z87.19 Personal history of other diseases of the digestive system; R41.3 Other amnesia; M19.90 Unspecified osteoarthritis, unspecified site; I69.354 Hemiplegia and hemiparesis following cerebral infarction affecting left non-dominant side; Z87.01 Personal history of pneumonia (recurrent); M06.9 Rheumatoid arthritis, unspecified; I73.00 Raynaud's syndrome without gangrene; K76.0 Fatty (change of) liver, not elsewhere classified; K58.9 Irritable bowel syndrome, unspecified; I67.1 Cerebral aneurysm, nonruptured; G57.83 Other specified mononeuropathies of bilateral lower limbs; G56.83 Other specified mononeuropathies of bilateral upper limbs; Z86.14 Personal history of Methicillin resistant Staphylococcus aureus infection; Z90.49 Acquired absence of other specified parts of digestive tract; Z90.710 Acquired absence of both cervix and uterus; Z98.51 Tubal ligation status; Z98.890 Other specified postprocedural states; F17.200 Nicotine dependence, unspecified, uncomplicated; Z82.3 Family history of stroke; Z82.49 Family history of ischemic heart disease and other diseases of the circulatory system; Z81.1 Family history of alcohol abuse and dependence; Z80.1 Family history of malignant neoplasm of trachea, bronchus and lung; Z80.3 Family history of malignant neoplasm of breast; Z80.41 Family history of malignant neoplasm of ovary; Z79.890 Hormone replacement therapy; Z79.899 Other long term (current) drug therapy; Z88.6 Allergy status to analgesic agent; Z88.1 Allergy status to other antibiotic agents; Z88.5 Allergy status to narcotic agent; Z88.8 Allergy status to other drugs, medicaments and biological substances; Z79.1 Long term (current) use of non-steroidal anti-inflammatories (NSAID)
CPT/HCPCS: 64999; 49652; C1781; J2250; J2710; J0690; J2405; J3010; J1170 ×2; J2795; J0330; J2704; J1644; J2001

== ENCOUNTER → 2022-02-06 | Outpatient (CLI) | payer MEDICARE, OTHER ==
[2022-02-06 14:36] LABS: HCT 41.2 % (37.2-46.3); HGB 13.9 g/dL (12.0-15.0); MCH 33.3 pg (27.0-32.0); MCHC 33.7 g/dL (32.0-37.0); MCV 98.6 fL (80.0-97.0); NRBC Per 100 WBC 0 /100 WBCS (0.0-0.0); Platelet Count 295 X 10*3/uL (140-440); RBC 4.18 X 10*6/uL (4.10-5.20); WBC 8.51 X 10*3/uL (4.50-10.00)
[2022-02-06 16:52] LABS: % Iron Saturation 21.53 (12.00-45.00); Iron 87 ug/dL (50-170); Total Iron Binding Capacity 405 ug/dL (228-460)
[2022-02-06 16:53] LABS: ALT 25 U/L (8-44); AST 26 U/L (13-35); African American GFR (CKD) 124.6 (60.0-200.0); Albumin 4.6 g/dL (3.8-4.9); Albumin/Globulin Ratio 2.05 (1.60-3.17); Alkaline Phosphatase 52 U/L (41-126); BUN/Creat Ratio 16.93 Ratio (12.00-20.00); Carbon Dioxide 23.2 mmol/L (20.0-27.5); Chloride 103 mmol/L (96-109); Globulin 2.3 g/dL (1.6-3.3); Glucose 80 mg/dL (70-110); Non-African American GFR(CKD) 107.5 (60.0-200.0); Potassium 4.4 mmol/L (3.5-5.5); Sodium 140 mmol/L (135-145); Total Bilirubin <0.15 mg/dL (0.30-1.20); Total Protein 6.9 g/dL (6.2-8.2)
== END | disposition home or self-care (01) ==
LOC: LABWHC1 08:32
PROVIDERS: ATTEND Internal Medicine
DX: R53.82 Chronic fatigue, unspecified (principal)
CPT/HCPCS: 36415; 80053; 82306; 82607; 83540; 83550; 84439; 84443; 84481; 85027

== ENCOUNTER → 2022-04-10 | Outpatient (CLI) | payer MEDICARE, OTHER ==
--- NOTE | 2022-04-11 11:35 | MM ---
Reason for Exam: Screening (asymptomatic). Last mammogram was performed 1 year(s) and 1 month(s) ago. Patient History: Menarche at age 14. First Full-Term at age 22. Hysterectomy at age 35. Postmenopausal. Patient has history of breast feeding. Previous chemotherapy. Hormonal Contraceptives for 10 years from age 17 until age 27. 04/23/2021, Benign Core Biopsy on the left side. Maternal grandmother had breast cancer, age 50. Risk Values: Areli 5 year model risk: 0.7%. NCI Lifetime model risk: 11.1%. Prior Study Comparison: 03/29/2021 Bilateral Diagnostic Mammogram, [facility]. 04/23/2021 Left Diagnostic Mammogram, [facility]. 11/14/2021 Left MG 3D diag mammo w/cad , [facility]. Tissue Density: The breast tissue is heterogeneously dense. This may lower the sensitivity of mammography. Findings: Analyzed By CAD. There is no suspicious group of microcalcifications within either breast. Biopsy clip in the left breast. Increased size of asymmetry demonstrated within the outer left breast anterior depth only on the cc view. No definitive abnormality in the right axilla in the patient's region of palpable marker. Overall Assessment: Incomplete: need additional imaging evaluation, BI-RAD 0 Management: Diagnostic Mammogram of the left breast. Diagnostic Breast Ultrasound of the right breast. A clinical breast exam by your physician is recommended on an annual basis and results should be correlated with mammographic findings. [facility] will attempt to contact patient to return for supplemental views and ultrasound if indicated. Electronically signed and approved by: Jose G Azar D.O.
== END | disposition home or self-care (01) ==
LOC: RADMAMWWP 16:53
PROVIDERS: ATTEND Surgery
DX: Z12.31 Encounter for screening mammogram for malignant neoplasm of breast (principal); Z78.0 Asymptomatic menopausal state; Z80.3 Family history of malignant neoplasm of breast; Z98.890 Other specified postprocedural states
CPT/HCPCS: 77063; 77067

== ENCOUNTER → 2022-04-17 | Outpatient (CLI) | payer MEDICARE, OTHER ==
--- NOTE | 2022-04-17 15:43 | MM ---
Reason for Exam: Additional evaluation requested from abnormal screening. Last screening mammogram was performed less than 1 month ago. Patient History: Menarche at age 14. First Full-Term at age 22. Hysterectomy at age 35. Postmenopausal. Patient has history of breast feeding. Previous chemotherapy. Hormonal Contraceptives for 10 years from age 17 until age 27. 04/23/2021, Benign Core Biopsy on the left side. Maternal grandmother had breast cancer, age 50. Risk Values: Areli 5 year model risk: 0.7%. NCI Lifetime model risk: 11.1%. Prior Study Comparison: 03/28/2017 Bilateral Diagnostic Mammogram, [facility]. 03/28/2017 Bilateral Diagnostic Ultrasound, [facility]. 09/04/2018 Bilateral Diagnostic Mammogram, [facility]. 09/04/2018 Right Diagnostic Ultrasound, [facility]. 04/23/2021 Left Diagnostic Mammogram, [facility]. 11/14/2021 Left MG 3D diag mammo w/cad LT, [facility]. 11/14/2021 Left US breast LT, [facility]. 04/10/2022 Bilateral MG 3D screening mammo w/cad, [facility]. Tissue Density: Left: The breast tissue is heterogeneously dense. This may lower the sensitivity of mammography. Findings: Analyzed By CAD. Asymmetry within the outer left breast anterior depth demonstrated on the CC view persists with compression. Biopsy clip within the left breast. Overall Assessment: Incomplete: need additional imaging evaluation, BI-RAD 0 Management: Diagnostic Breast Ultrasound of the left breast. A clinical breast exam by your physician is recommended on an annual basis and results should be correlated with mammographic findings. This exam should not preclude additional follow-up of suspicious palpable abnormalities. Results were given to the patient verbally at the time of exam. Electronically signed and approved by: Jose G Azar D.O.
--- NOTE | 2022-04-17 15:43 | MM ---
Reason for Exam: Additional evaluation requested from abnormal screening. Last screening mammogram was performed less than 1 month ago. Patient History: Menarche at age 14. First Full-Term at age 22. Hysterectomy at age 35. Postmenopausal. Patient has history of breast feeding. Previous chemotherapy. Hormonal Contraceptives for 10 years from age 17 until age 27. 04/23/2021, Benign Core Biopsy on the left side. Maternal grandmother had breast cancer, age 50. Risk Values: Areli 5 year model risk: 0.7%. NCI Lifetime model risk: 11.1%. Prior Study Comparison: 03/28/2017 Bilateral Diagnostic Mammogram, [facility]. 03/28/2017 Bilateral Diagnostic Ultrasound, [facility]. 09/04/2018 Bilateral Diagnostic Mammogram, [facility]. 09/04/2018 Right Diagnostic Ultrasound, [facility]. 04/23/2021 Left Diagnostic Mammogram, [facility]. 11/14/2021 Left MG 3D diag mammo w/cad LT, [facility]. 11/14/2021 Left US breast LT, [facility]. 04/10/2022 Bilateral MG 3D screening mammo w/cad, [facility]. Tissue Density: Left: The breast tissue is heterogeneously dense. This may lower the sensitivity of mammography. Findings: Analyzed By CAD. Asymmetry within the outer left breast anterior depth demonstrated on the CC view persists with compression. Biopsy clip within the left breast. Overall Assessment: Incomplete: need additional imaging evaluation, BI-RAD 0 Management: Diagnostic Breast Ultrasound of the left breast. A clinical breast exam by your physician is recommended on an annual basis and results should be correlated with mammographic findings. This exam should not preclude additional follow-up of suspicious palpable abnormalities. Results were given to the patient verbally at the time of exam. Electronically signed and approved by: Jose G Azar D.O.
--- NOTE | 2022-04-17 16:07 | USB ---
Reason for Exam: Additional evaluation requested from abnormal screening. Patient History: Menarche at age 14. First Full-Term at age 22. Hysterectomy at age 35. Postmenopausal. Patient has history of breast feeding. Previous chemotherapy. Hormonal Contraceptives for 10 years from age 17 until age 27. 04/23/2021, Benign Core Biopsy on the left side. Maternal grandmother had breast cancer, age 50. Risk Values: Areli 5 year model risk: 0.7%. NCI Lifetime model risk: 11.1%. Technique: Method: Targeted. Prior Study Comparison: 04/23/2021 Left Diagnostic Mammogram, [facility]. 11/14/2021 Left MG 3D diag mammo w/cad LT, [facility]. 04/10/2022 Bilateral MG 3D screening mammo w/cad, [facility]. Findings: The lateral section of the breast of the left breast, the axilla of both breasts and the retroareolar of the left breast were scanned. Dedicated ultrasound of the right axilla the patient's region of palpable right was obtained. There were a few benign-appearing lymph nodes within the right axilla with largest measuring 1.9 x 0.7 x 1.5 cm with cortex measuring 2.5 mm in thickness. Dedicated left breast ultrasound from 12-6:00 with evaluation of the nipple was performed. Solid or cystic lesions identified. Overall Assessment: Benign, BI-RAD 2 Management: Screening Mammogram of both breasts in 1 year. A clinical breast exam by your physician is recommended on an annual basis and results should be correlated with mammographic findings. This exam should not preclude additional follow-up of suspicious palpable abnormalities. ??Results were given to the patient verbally at the time of exam. Electronically signed and approved by: Jose G Azar D.O.
--- NOTE | 2022-04-17 16:07 | USB ---
Reason for Exam: Additional evaluation requested from abnormal screening. Patient History: Menarche at age 14. First Full-Term at age 22. Hysterectomy at age 35. Postmenopausal. Patient has history of breast feeding. Previous chemotherapy. Hormonal Contraceptives for 10 years from age 17 until age 27. 04/23/2021, Benign Core Biopsy on the left side. Maternal grandmother had breast cancer, age 50. Risk Values: Areli 5 year model risk: 0.7%. NCI Lifetime model risk: 11.1%. Technique: Method: Targeted. Prior Study Comparison: 04/23/2021 Left Diagnostic Mammogram, [facility]. 11/14/2021 Left MG 3D diag mammo w/cad LT, [facility]. 04/10/2022 Bilateral MG 3D screening mammo w/cad, [facility]. Findings: The lateral section of the breast of the left breast, the axilla of both breasts and the retroareolar of the left breast were scanned. Dedicated ultrasound of the right axilla the patient's region of palpable right was obtained. There were a few benign-appearing lymph nodes within the right axilla with largest measuring 1.9 x 0.7 x 1.5 cm with cortex measuring 2.5 mm in thickness. Dedicated left breast ultrasound from 12-6:00 with evaluation of the nipple was performed. Solid or cystic lesions identified. Overall Assessment: Benign, BI-RAD 2 Management: Screening Mammogram of both breasts in 1 year. A clinical breast exam by your physician is recommended on an annual basis and results should be correlated with mammographic findings. This exam should not preclude additional follow-up of suspicious palpable abnormalities. ??Results were given to the patient verbally at the time of exam. Electronically signed and approved by: Jose G Azar D.O.
== END | disposition home or self-care (01) ==
LOC: RADMAMWWP 14:58
PROVIDERS: ATTEND Surgery
DX: R92.8 Other abnormal and inconclusive findings on diagnostic imaging of breast (principal); Z78.0 Asymptomatic menopausal state; Z80.3 Family history of malignant neoplasm of breast
CPT/HCPCS: 77065; 76642; G0279; 77061

== ENCOUNTER → 2024-03-04 | Outpatient (CLI) | payer BC ==
[2024-03-04 15:46] LABS: Basophils # (A) 0.03 X 10*3/uL (0.00-0.10); Basophils % (A) 0.5 %; Eosinophils # (A) 0.16 X 10*3/uL (0.04-0.35); Eosinophils % (A) 2.7 %; HCT 41.2 % (37.2-46.3); HGB 14.2 g/dL (12.0-15.0); Lymphocytes # (A) 1.54 X 10*3/uL (0.90-5.00); Lymphocytes % (A) 25.8 %; MCH 32.5 pg (27.0-32.0); MCHC 34.5 g/dL (32.0-37.0); MCV 94.3 FL (80.0-97.0); Mean Platelet Volume 9.6 FL (9.5-12.2); Monocytes % (A) 10.1 %; NRBC Per 100 WBC 0 X 10*3/uL (0.00-0.01); Neutrophils # (A) 3.61 X 10*3/uL (1.80-7.70); Neutrophils % (A) 60.4 %; Platelet Count 342 X 10*3/uL (140-440); RBC 4.37 X 10*6/uL (4.10-5.20); WBC 5.97 X 10*3/uL (4.50-10.00)
[2024-03-04 17:32] LABS: ALT 99 U/L (8-44); AST 33 U/L (13-35); Albumin 4.5 g/dL (3.8-4.9); Albumin/Globulin Ratio 2.14 Ratio (1.60-3.17); Alkaline Phosphatase 72 U/L (41-126); Blood Urea Nitrogen 22.4 mg/dL (9.0-27.0); Calcium 9.7 mg/dL (8.7-10.3); Carbon Dioxide 22.3 mmol/L (21.6-31.8); Chloride 102 mmol/L (96-109); Chol/HDL Ratio 3.97 Ratio; Globulin 2.1 g/dL (1.6-3.3); Glucose 147 mg/dL (70-110); LDL Cholesterol,Calculated 100.6 mg/dL (0.0-131.0); Potassium 4.5 mmol/L (3.5-5.5); Sodium 138 mmol/L (135-145); T4, Free (Free Thyroxine) 1.99 ng/dL (0.80-1.80); Total Bilirubin <0.2 mg/dL (0.3-1.2); Total Protein 6.6 g/dL (6.2-8.2); Uric Acid 4.7 mg/dL (2.9-7.7)
--- NOTE | 2024-03-07 11:22 | MM ---
Reason for Exam: Screening (asymptomatic). Last mammogram was performed 1 year(s) and 11 month(s) ago. Patient History: Menarche at age 14. First Full-Term at age 22. Hysterectomy at age 35. Postmenopausal. Patient has history of breast feeding. Previous chemotherapy. Hormonal Contraceptives for 10 years from age 17 until age 27. 04/23/2021, Benign Core Biopsy on the left side. Maternal grandmother had breast cancer, age 50. Risk Values: Areli 5 year model risk: 0.9%. NCI Lifetime model risk: 10.9%. Prior Study Comparison: 11/14/2021 Left MG 3D diag mammo w/cad LT, [facility]. 04/10/2022 Bilateral MG 3D screening mammo w/cad, [facility]. 04/17/2022 Left MG 3D work up w/cad LT, [facility]. Tissue Density: There are scattered areas of fibroglandular density. Findings: Analyzed By CAD. Left breast biopsy clip. Right breast: There is no suspicious group of microcalcifications or new suspicious mass. Left breast: There is no suspicious group of microcalcifications or new suspicious mass. Overall Assessment: Benign, BI-RAD 2 Management: Screening Mammogram of both breasts in [address] [facility] will attempt to contact patient to return for supplemental views and ultrasound if indicated. Patient should continue monthly self-breast exams. A clinical breast exam by your physician is recommended on an annual basis. This exam should not preclude additional follow-up of suspicious palpable abnormalities. Note on Areli scores and lifetime risk: 1. A Areli score greater than 3% is considered moderate risk. If this is the case, consider specialist referral to assess eligibility for a risk reducing agent. 2. If overall lifetime risk for the development of breast cancer is 20% or higher, the patient may qualify for future screening with alternating mammogram and breast MRI. Electronically signed and approved by: Peng Lovell DO
== END | disposition home or self-care (01) ==
LOC: RADMAMWWP 10:56
PROVIDERS: ATTEND Internal Medicine
DX: Z12.31 Encounter for screening mammogram for malignant neoplasm of breast (principal); Z00.00 Encounter for general adult medical examination without abnormal findings; R92.323 Mammographic fibroglandular density, bilateral breasts; E03.9 Hypothyroidism, unspecified; Z78.0 Asymptomatic menopausal state; Z80.3 Family history of malignant neoplasm of breast
CPT/HCPCS: 77063; 77067; 80053; 80061; 84439; 84443; 84550; 85025

== ENCOUNTER → 2024-03-04 | Outpatient (CLI) | payer BC ==
--- NOTE | 2024-03-04 18:14 | XR ---
EXAMINATION TYPE: XR knee 4V RT DATE OF EXAM: 03/04/2024 COMPARISON: 11/24/2020 outside exam HISTORY: 43-year-old female and 2 5.561, right knee pain, history of multiple surgeries TECHNIQUE: 4 views FINDINGS: Previous ACL graft reconstruction. Both femoral and tibial tunnels appear relatively simila r. There has been progression in the lateral compartmental degenerative change with larger osteochond ral injury along the mid weightbearing aspect of the lateral femoral condyle and increasing marginal spurring and joint space loss. Degenerative spurring in the medial patellofemoral compartments also s lightly increased. A trace to small knee joint effusion is suggested. Extensor mechanism appears inta ct. No acute fracture, subluxation, or dislocation seen. IMPRESSION: 1. Previous ACL graft reconstruction with relatively similar appearance to both femoral and tibial tu nnels. 2. Tricompartmental osteoarthrosis, mistakenly progressed within the lateral compartment now with the larger osteochondral defect of the mid weightbearing aspect of the lateral femoral condyle.
== END | disposition home or self-care (01) ==
LOC: RADXRMAIN 11:19
PROVIDERS: ATTEND Internal Medicine
DX: M25.561 Pain in right knee